=== PATIENT | female | born 2000 | race Caucasian/White ===

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

== ENCOUNTER 2021-01-08 01:50 | Emergency (ER) | payer MEDICAID, SELFPAY ==
[2021-01-08 01:59] VITALS: BP 121/69; PULSE 98; RESP 18; TEMP 36.9; O2SAT 99; BMI 19.4
[2021-01-08 02:26] LABS: Appearance Urine HAZY; Color Urine DARK YELLOW; Glucose Urine UA NEG (NEG); Leukocyte Esterase Urine NEG (NEG); Nitrite Urine NEG (NEG); PH 5.5 (5.0-8.0); Specific Gravity - Urine >= 1.030 (1.005-1.025); UACC Culture Trigger NO; Urine Blood NEG (NEG); Urine Ketones 40 MG/DL (NEG); Urine Protein TRACE MG/DL (NEG-TRACE)
[2021-01-08 02:27] LABS: UPreg QC Valid YES; Urine Pregnancy NEGATIVE (NEGATIVE)
--- NOTE | 2021-01-08 05:55 | ED_ITS ---
HPI - Female Genitourinary General Chief complaint: Urogenital-Female Stated complaint: ?KIDNEY STONE/UTI Time Seen by Provider: 01/08/21 05:54 Source: patient Mode of arrival: ambulatory History of Present Illness HPI Narrative: Bilateral lower back pain radiating into the bilateral groin area for 1 and half weeks associated with nausea, a few episodes of diarrhea and feels that this is a UTI. She denies any vaginal discharge and states that her menstrual period is late. Related Data Previous Rx's Medication Instructions Recorded ibuprofen 600 mg PO Q8H PRN #30 tab 07/15/20 Allergies Allergy/AdvReac Type Severity Reaction Status Date / Time No Known Allergies Allergy Verified 01/08/21 01:58 [No Known Allergies*] Review of Systems Review of Systems: Pertinent positives and negatives as stated in HPI 10 point review of systems is otherwise negative. PMFSH Past Medical History Source: nursing notes reviewed Medical History Anxiety Depression No known health problems Surgical History Hx of tonsillectomy Social History Social History Alcohol intake: current Alcohol intake frequency: holidays/special occasions only Smoking Status: Current some day smoker Substance Use Type: Marijuana Advance Directives: No Physical Exam Vital Signs: Vital Signs: Last Vital Signs Temp 98.5 F 01/08/21 01:59 Pulse 98 01/08/21 01:59 Resp 18 01/08/21 01:59 BP 121/69 01/08/21 01:59 Pulse Ox 99 01/08/21 01:59 Body Mass Index 19.4 VITAL SIGNS: Reviewed. GENERAL: Well developed, well nourished, in no acute distress. HEAD: Normocephalic/atraumatic, NOSE: Nares patent bilateral OROPHARYNX: no oral lesions noted, posterior pharynx clear NECK: Supple, no adenopathy LUNGS: Normal breath sounds. SpO2<99> CARDIOVASCULAR: Regular rate and rhythm without noted murmurs ABDOMEN: Soft, mild suprapubic tenderness, non-distended with bowel sounds, bilateral CVA tenderness. NEUROLOGIC: Alert and oriented x 4. Course Course Course Narrative: This is a 20-year-old female who presents with initially thought to be possible renal colic versus pyelonephritis, UTI but on review of urinalysis and urine there are no acute findings other than evidence of likely mild dehydration. Patient is afebrile, non tachycardic, no evidence of tachypnea but continues to insist that she knows that this is a UTI. She was offered a CT scan for better evaluation however declines that at this time. Patient was discharged in stable condition with good follow-up as she states she will return to her primary care provider today. MDM - Female Genitourinary Lab Data Labs: Lab Results 01/08/21 01/08/21 Range/Units 02:16 02:16 Urine Color DARK YELLOW Urine Appearance HAZY Urine pH 5.5 (5.0-8.0) Ur Specific [place] >= 1.030 H (1.005-1.025) Urine Protein TRACE (NEG-TRACE) MG/DL Urine Glucose (UA) NEG (NEG) MG/DL Urine Ketones 40 (NEG) MG/DL Urine Blood NEG (NEG) Urine Nitrite NEG (NEG) Ur Leukocyte Esterase NEG (NEG) Urine Test NEGATIVE (NEGATIVE) Discharge Plan Discharge Clinical Impression: Back pain Qualifiers: Back pain location: low back pain Chronicity: acute Back pain laterality: bilateral Sciatica presence: without sciatica Qualified Code(s): M54.5 - Low back pain Patient Disposition: Home, Self-Care Instructions: Acute Low Back Pain (ED) Additional Instructions: 1. Please utilize Tylenol 1000 mg, orally, every 6 hours as needed for pain control. Do not exceed 4000 mg within 24 hours. 2. Ibuprofen 400 mg, orally with milk or food, every 6 hours as needed for pain control. Do not hesitate to return to the emergency department should you experience any acute worsening of your symptoms to include fevers, chills , nausea, vomiting. Prescriptions: No Action ibuprofen 600 mg tablet 600 mg PO Q8H PRN (Reason: pain) Qty: 30 RF: 0 Interventions: ED Discharge Assessment Last Done: 01/08/21 06:59 Discharge Date/Time: 01/08/21 06:15
--- NOTE | 2021-01-08 06:47 | PC.NURSE ---
PT WALKED OUT OF ER AT 05:30.
== END 2021-01-08 06:15 | disposition home or self-care (01) ==
PROVIDERS: Emergency Provider Student in an Organized Health Care Education/Training Program
DX: M54.5 Low back pain (principal); R19.7 Diarrhea, unspecified; F12.90 Cannabis use, unspecified, uncomplicated; F17.200 Nicotine dependence, unspecified, uncomplicated; Z71.6 Tobacco abuse counseling
CPT/HCPCS: 81003; 81025; 96372; 99283; 99284

== ENCOUNTER 2021-12-03 12:53 | Inpatient (IN) | payer MEDICAID, OTHER, SELFPAY ==
--- NOTE | ~2021-12-03 | XR_ITS ---
EXAMINATION: XR HAND WRIST RIGHT CLINICAL INFORMATION: Bruising, soreness after punching wall COMPARISON: None TECHNIQUE: Right hand and wrist, 3 views XR/XR hand wrist RT FINDINGS AND IMPRESSION: Alignment is normal in the hand or wrist. Minimal soft tissue swelling dorsal to the fifth metacarpal head. Otherwise, bones, joints and soft tissues have a normal appearance. No evidence of fracture or subluxation.
[2021-12-03 12:59] VITALS: BP 118/80; PULSE 72
--- NOTE | 2021-12-03 13:05 | ED_ITS ---
HPI - Psych General Chief Complaint: Psychiatric Symptoms Stated Complaint: SEC 12,SI W/PLAN,SEEN IN COMM,BED EARCH IN PROG Time Seen by Provider: 12/03/21 13:02 Source: patient Mode of arrival: EMS Limitations: no limitations History of Present Illness MD complaint: suicidal ideation and feels depressed Onset (ago): day(s) Duration: getting worse History of same: Yes Relieving factors: none Exacerbating factors: none Context: significant life stressor Associated psychiatric symptoms: depression and suicidal ideation Associated symptoms: denies other symptoms Treatments prior to arrival: placed on mental health hold If self harm: admits thoughts of self harm Related Data Previous Rx's Medication Instructions Recorded ibuprofen 600 mg tablet 600 mg PO Q8H PRN #30 tab 07/15/20 Allergies Allergy/AdvReac Type Severity Reaction Status Date / Time No Known Allergies Allergy Verified 01/08/21 01:58 [No Known Allergies*] Review of Systems Review of Systems: Constitutional : No Fever, No Chills ENT/Mouth : No Ear Pain, No Nasal Congestion, No sore throat Eyes: No Eye Pain, No Swelling, No Redness Cardiovascular : No Chest Pain, No SOB Respiratory : No Cough, No Sputum, No Dyspnea Gastrointestinal : No Nausea, No Vomiting, No Diarrhea, No Hematochezia, No Melena Genitourinary : No Dysuria, No Urinary Frequency, No Hematuria Musculoskeletal : No Myalgias Skin : No Skin Lesions, No rash Neuro : No Weakness, No Numbness, No Paresthesias, No Dizziness, No Headache Psych : positive Anxiety, positive Depression, positive SI no HI Heme/Lymph: No Lymphadenopathy Endocrine : No Polyuria, No Polydipsia All other systems reviewed and are negative PENDING SALE TO [facility] Past Medical History Attestation statement: The following information was validated with the patient. Medical History Anxiety Depression No known health problems Surgical History Hx of tonsillectomy Social History Social History Alcohol intake: never Smoked in Last 30 Days: No Substance Use Type: Marijuana Advance Directives: No Advance Directives Information Provided: No Physical Exam Vital Signs: Vital Signs: Last Vital Signs Temp 98.4 F 12/03/21 13:49 Pulse 72 12/03/21 13:49 Resp 16 12/03/21 13:49 BP 122/71 12/03/21 13:49 Pulse Ox 97 12/03/21 13:49 BMI result Body Mass Index 23.4 Appearance: Alert. Oriented X3. No acute distress. Flat affect Eyes: Pupils equal, round and reactive to light. ENT: Pharynx normal. Neck: Normal inspection. Neck supple. CVS: Normal heart rate and rhythm. Pulses normal. Respiratory: No respiratory distress. Breath sounds normal. Abdomen: Soft and non-tender. Skin: Skin warm and dry. Normal skin color. Normal skin turgor. Extremities: No lower extremity edema. No calf ttp Neuro: Oriented X 3. No motor deficit. No sensory deficit. Cn2-12 intact Course Course Course Narrative: Physician observation started at 317pm. Patient placed in physician observation because the patient needed more time for crisis assessment given SI At the time observation was started the patient's vitals were stable, patient is alert and oriented. Neuro: nonfocal, CV RRR, Lungs clear MDM - Psych MDM Narrative Medical decision making narrative: 21 yo female hx of anxiety and depression 2 months post - c/o depression and SI - bed search from community will obtain labs and medically clear Discharge Plan Discharge Clinical Impression: Depression Qualifiers: Depression Type: unspecified Qualified Code(s): F32.A - Depression, unspecified Patient Disposition: Still a Patient Prescriptions: No Action ibuprofen 600 mg tablet 600 mg PO Q8H PRN (Reason: pain) Qty: 30 0RF
[2021-12-03] MEDS: LORazepam 1 MG TABLET PO ×3 (13:44→23:32)
[2021-12-03 13:49] VITALS: BP 122/71; PULSE 72; RESP 16; TEMP 36.9; O2SAT 97; BMI 23.4
[2021-12-03 15:43] VITALS: BP 105/60; PULSE 69; RESP 16; O2SAT 99
[2021-12-03 15:57] LABS: MANUAL DIFF FLAG NO
[2021-12-03 16:00] LABS: Basophils Percent Auto 0.3 % (0-2); Eosinophils Percent Auto 0.3 % (0-4); Hematocrit 36.3 % (37.0-47.0); Imm Gran Abs Auto 0.01 X10*3/uL (0.00-0.03); Imm Gran Pct Auto 0.1 % (0.0-0.4); Lymphocytes Absolute Auto 1.6 X10*3/uL (1.2-4.9); Lymphocytes Percent Auto 23.8 % (20-40); Mean Corpuscular HGB Conc 33.1 g/dl (31.0-35.0); Mean Corpuscular Hemoglobin 28.4 pg (27.0-33.0); Mean Corpuscular Volume 85.8 fL (80.0-98.0); Mean Platelet Volume 11.9 fL (9.4-12.3); Monocytes Absolute Auto 0.6 X10*3/uL (0.1-1.2); Monocytes Percent Auto 8.2 % (2-11); Neutrophils Absolute Auto 4.5 x10*3/uL (2.0-8.3); Neutrophils Percent Auto 67.3 % (45-73); Platelet Count 226 X10*3/uL (160-400); Red Blood Count 4.23 X10*6/uL (4.20-5.50); Red Cell Distribution Width 12.9 % (11.0-16.0); White Blood Count 6.7 X10*3/uL (4.8-10.8)
[2021-12-03 16:14] LABS: COVID-19 Test Negative (Negative); IDNOW Serial# 55D5AD1C
[2021-12-03 16:14] LABS: UPreg QC Valid YES; Urine Pregnancy NEGATIVE (NEGATIVE)
[2021-12-03 16:25] LABS: Amphetamine Screen Urine Not Detected (Not Detect); Barbiturates, Urine Not Detected (Not Detect); Benzodiazepines Screen Urine Not Detected (Not Detect); Cannabinoid Screen Urine POSITIVE (Not Detect); Cocaine Screen Urine Not Detected (Not Detect); Fentanyl, urine Not Detected (Not Detect); Opiate Screen Urine Not Detected (Not Detect); Phencyclidine Screen Urine Not Detected (Not Detect)
[2021-12-03 16:27] LABS: Alanine Aminotransferase 9 U/L (0-31); Albumin Level 4.4 g/dL (3.5-5.0); Alkaline Phosphatase 79 U/L (39-117); Anion Gap 12 (12-20); Aspartate Amino Transferase 19 U/L (5-31); Bilirubin Direct 0.2 mg/dL (0.0-0.5); Bilirubin Total 0.6 mg/dL (0.0-1.0); Blood Urea Nitrogen 10 mg/dL (9-16); Calcium 9.9 mg/dL (8.4-10.2); Carbon Dioxide 24 mmol/L (22-29); Chloride 109 mmol/L (96-108); Creatinine Clr Calc Pharmacy 91.5; Estimated Glomerular Filt Rate > 60; Glucose Random 85 mg/dL (60-115); Potassium 4.4 mmol/L (3.3-5.1); Sodium 141 mmol/L (135-145); Total Protein 7.1 g/dL (6.5-8.0)
[2021-12-03] MEDS: diphenhydrAMINE HCL 25 MG TABLET 50 MG PO (23:32)
[2021-12-03] MEDS: OLANZapine 5 MG TABLET PO (23:32)
--- NOTE | 2021-12-03 23:48 | PC.NURSE ---
Patient was found wrapping blanket around her neck, intervened/1:1 ordered for safety, Olanzapine 5 mg PO, Ativan 1 mg PO, and Benadryl 50 mg po, administered/vomited immediately after taking her medication, patient is constantly expressing hopelessness/suicidal ideation, appears overwhelmed being new mother, will continue to monitor.
[2021-12-03 23:52] VITALS: BP 98/60; PULSE 75; RESP 20; O2SAT 97
[2021-12-03 23:54] LABS: Glucose, Whole Blood 84 mg/dL (60-115)
[2021-12-04 00:01] LABS: Appearance Urine TURBID; Color Urine YELLOW; Glucose Urine UA NEG (NEG); Leukocyte Esterase Urine NEG (NEG); Nitrite Urine NEG (NEG); Specific Gravity - Urine >= 1.030 (1.005-1.025); Urine Blood NEG (NEG); Urine Ketones 15 MG/DL (NEG); Urine Protein NEG (NEG-TRACE)
[2021-12-04] MEDS: Ondansetron ODT 4 MG TAB.RAPDIS TRANSLINGU (00:02)
[2021-12-04] MEDS: OLANZapine ODT 10 MG TAB.RAPDIS TRANSLINGU ×2 (00:14→18:40)
--- NOTE | 2021-12-04 05:46 | PC.NURSE ---
Patient slept through the night, 1:1 for patient safety, no distress observed/reported at this time, behavior unpredictable/hopelessness/ suicidal/[id number], mood depressed related to , affect labile, VSS, appetite poor, VSS, will continue to monitor.
--- NOTE | 2021-12-04 05:51 | PC.NURSE ---
Patient disposition per [facility] is section 12 inpatient bed search, no update so far on bed search.
--- NOTE | 2021-12-04 06:07 | PC.NURSE ---
Per MHT report, patient verbalized on two occasion to elope from the ED Pod.
--- NOTE | 2021-12-04 09:17 | PC.NURSE ---
pt's mother called for update and states she will be in to visit sometime this afternoon. pt sleeping, 1:1 staff monitoring, no issues noted or reported, pt awaiting inpatient bed assignment. will continue to monitor.
--- NOTE | 2021-12-04 10:20 | PC.NURSE ---
Juana from [facility] called with authorization number ([id number] for 3days). The Clinician is Bryanna. No ETA at this time. pt sleeping, 1:1 staff remains will continue to monitor.
--- NOTE | 2021-12-04 11:13 | PC.NURSE ---
pt seen by Kamille from Care Team and signed Voluntary Admission papers. Pt to be admitted to M3 pending bed availability.
[2021-12-04] MEDS: LORazepam 1 MG TABLET PO (11:57)
[2021-12-04] MEDS: OLANZapine 10 MG VIAL 5 MG IM (13:00)
[2021-12-04 14:13] VITALS: BP 101/58; PULSE 97; RESP 18; O2SAT 96
--- NOTE | 2021-12-04 14:30 | PC.NURSE ---
pt woke up and immediately began pacing around the unit, yelling, swearing, punching the daniels, and kicking the entrance doors. security staff notified and came to unit. pt had episodes of yelling, swearing, pulling out her hair, made one attempt to put blanket around her neck. pt calmed down briefly then started again with the same behaviors. Karen, Behavior Flight Coordinator at pt's bedside. she continued on and off with aggressive and violent behaviors, also threatening staff. pt offered and accepted po med. Shortly after she began throwing things such as food and bed linen, yelling, swearing, punching and banging her head on the daniels, pulling her hair and continued with threats towards staff including security staff. Pt given IM medication and placed in 4 points soft restraints. VSS monitored, restraints monitored and was discontinued at 1350. pt sleeping. 1:1 staff remains. will continue to monitor
--- NOTE | 2021-12-04 17:18 | PC.NURSE ---
pt transferred to M3 by Yolande, Behavioral Tech and security staff. pt calm and cooperative.
[2021-12-04] MEDS: LORazepam 1 MG TABLET 2 MG PO (18:41)
--- NOTE | 2021-12-04 19:39 | PC.NURSE ---
Latonia is a 21 year old single female admitted to M3 on CV ( now 3 day notice) from [facility] for post depression, suicidal ideation, and ptsd. Latonia has experienced poor appetite, poor sleep, racing thoughts, depressed mood and anxiety since the of her son 2 months ago. Latonia was intermittently agitated and vacillated between cooperative and uncooperative with admission process. She verbalized ideation to harm both self and others and was vague about intent. She states, I don't want to be here. I want to kill myself. I want to . I've been here all day and no one has helped me yet. and I could just slit all your throats right now. She confirms racing thoughts and anxiety, denies perceptual disturbance. Latonia engaged in self harming behaviors intermittently this evening: light head banging, hitting self, kicking wall, requiring verbal and physical redirection. Therefore , she was placed on 1:1 for safety.. Latonia initially refused prn medications but with prompting took ativan 2mg and zyprexa 10mg po with good effect. She reports the only substance she uses in marijuana. She denies physical complaint.
[2021-12-04 20:10] VITALS: PULSE 69; TEMP 36.6; O2SAT 97
[2021-12-05 07:00] VITALS: BMI 22.0
[2021-12-05 10:00] VITALS: BP 117/65; PULSE 101; RESP 16; TEMP 36.2; O2SAT 97
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
[2021-12-05 18:00] VITALS: BP 122/70; PULSE 103; RESP 18; TEMP 36.7; O2SAT 95
[2021-12-05] MEDS: hydrOXYzine HCL 25 MG TABLET PO (21:46)
[2021-12-05] MEDS: traZODone HCL 50 MG TABLET PO (21:46)
[2021-12-05] MEDS: Acetaminophen 325 MG TABLET 650 MG PO (23:23)
[2021-12-06 11:24] VITALS: BP 113/62; PULSE 88; RESP 16; TEMP 36.7; O2SAT 92
[2021-12-06] MEDS: LORazepam 1 MG TABLET 2 MG PO (11:27)
--- NOTE | 2021-12-06 15:09 | HO.PSYCHPN ---
Subjective Subjective Date of Service: 12/06/21 Reason For Visit: Agitation Subjective Notes: 3 Day Interim History: Pt reports she felt dizzy earlier today when standing up, mild ortho hotn when standing (SBP drop 10m). Pt thinks is related to dose of ativan that she got earlier. She describes episodes of mood dysregulation when feeling frustrated, thinks Borderline Personality Disorder is accurate when describing white s/s. Pt reports she is open to start antidepressant, reports mother has done well on lexapro. She denies SI/HI. No VH/AH. Pt reports good sleep last night. No behavioral concerns. Medication Compliance: Yes Side effects from medications: No Review of Systems Review of Systems Constitutional : No Fever, No Chills ENT/Mouth : No Ear Pain, No Nasal Congestion, No sore throat Eyes: No Eye Pain, No Swelling, No Redness Cardiovascular : No Chest Pain, No SOB Respiratory : No Cough, No Sputum, No Dyspnea Gastrointestinal : No Nausea, No Vomiting, No Diarrhea, No Hematochezia, No Melena Genitourinary : No Dysuria, No Urinary Frequency, No Hematuria Musculoskeletal : No Myalgias Skin : No Skin Lesions, No rash Neuro : No Weakness, No Numbness, No Paresthesias, No Dizziness, No Headache Psych : positive Anxiety, positive Depression, positive SI no HI Heme/Lymph: No Lymphadenopathy Endocrine : No Polyuria, No Polydipsia All other systems reviewed and are negative Mental Status Exam Mental Status Exam Narrative: dressed in hospital attire. no PMA/PMR. cooperative with interview. speech nml in rate, amount, loudness, tone, latency. thoughts linear and logical. affect brighter, non labile. mood less depressed . No SI, no intent or plan. denies HI/AVH. Insight/judgment is fair. Diagnostics Vital Signs (24Hr): Vital Signs - 24 hr 12/05/21 18:00 12/06/21 11:24 Temperature 98.0 F 98.0 F Pulse Rate 103 H 88 Respiratory Rate 18 16 Blood Pressure 122/70 113/62 Pulse Oximetry 95 92 BMI result Body Mass Index 22.0 Labs Results: 12/03/21 15:53 12/03/21 15:53 Medications Medications Current Medications Acetaminophen (Acetaminophen 325 Mg Tablet) 650 mg PO Q6H PRN PRN Reason: Headache/Pain Mild Scale (1-3) Last Admin: 12/05/21 23:23 Dose: 650 mg Documented by: Al Hydroxide/Mg Hydroxide (Magnesium Hydrox/Alum Hydrox 30 Ml Oral.Susp) 30 ml PO Q6H PRN PRN Reason: Heartburn/Nausea Haloperidol (Haloperidol 5 Mg Tablet) 5 mg PO Q4H PRN PRN Reason: agitation Hydroxyzine HCl (Hydroxyzine Hcl 25 Mg Tablet) 25 mg PO BEDTIME PRN PRN Reason: Anxiety Last Admin: 12/05/21 21:46 Dose: 25 mg Documented by: Lorazepam (Lorazepam 1 Mg Tablet) 1 mg PO Q4H PRN PRN Reason: agitation Magnesium Hydroxide (Milk Of Magnesia 30 Ml Oral.Susp) 30 ml PO DAILY PRN PRN Reason: Constipation Nicotine Polacrilex (Nicotine Polacrilex 2 Mg Gum) 4 mg BUCCAL Q2H PRN PRN Reason: Nicotine Cravings Trazodone HCl (Trazodone Hcl 50 Mg Tablet) 50 mg PO BEDTIME PRN PRN Reason: Insomnia Last Admin: 12/05/21 21:46 Dose: 50 mg Documented by: Allergies Allergies Allergy/AdvReac Type Severity Reaction Status Date / Time No Known Allergies Allergy Verified 01/08/21 01:58 [No Known Allergies*] Assessment & Plan Assessment & Plan (1) MDD (major depressive disorder), recurrent episode, moderate: Status: Acute Code(s): F33.1 - Major depressive disorder, recurrent, moderate Plan PLAN: 1. start lexapro 10mg po daily 2. signed 3 day notice, up on 12/09/21 3. obtain collateral information 4. aftercare planning. I spent minutes with the patient and/or on the patient floor today, greater than?50% of which was spent counseling/coordinating care. Reason for contiued inpatient stay Substantial Risk for: harm to self
[2021-12-06] MEDS: Escitalopram Oxalate 10 MG TABLET PO (16:13)
[2021-12-06] MEDS: hydrOXYzine HCL 25 MG TABLET PO (18:54)
[2021-12-06 20:36] VITALS: PULSE 84; TEMP 36.7; O2SAT 97
[2021-12-07 08:00] VITALS: BP 109/71; PULSE 55; RESP 16; TEMP 36.8; O2SAT 98
--- NOTE | 2021-12-07 09:46 | HO.PSYCHPN ---
Subjective Subjective Date of Service: 12/07/21 Reason For Visit: Agitation Subjective Notes: Conditional Voluntary and 3 Day Medical Problems Affecting Mental Status: No Interim History: Patient was seen and discussed in rounds. Records and plans were reviewed. No episodes of dizziness reported today as of yet yesterday she had an episode with mild orthostasis. She continues to have depression and anxiety. Eating and sleeping adequately. She is isolative and withdrawn but pleasant and appears to have made some improvements. Eating and sleeping well. No complaints or side effects. No changes were made today Medication Compliance: Yes Review of Systems Review of Systems Constitutional : No Fever, No Chills ENT/Mouth : No Ear Pain, No Nasal Congestion, No sore throat Eyes: No Eye Pain, No Swelling, No Redness Cardiovascular : No Chest Pain, No SOB Respiratory : No Cough, No Sputum, No Dyspnea Gastrointestinal : No Nausea, No Vomiting, No Diarrhea, No Hematochezia, No Melena Genitourinary : No Dysuria, No Urinary Frequency, No Hematuria Musculoskeletal : No Myalgias Skin : No Skin Lesions, No rash Neuro : No Weakness, No Numbness, No Paresthesias, No Dizziness, No Headache Psych : positive Anxiety, positive Depression, positive SI no HI Heme/Lymph: No Lymphadenopathy Endocrine : No Polyuria, No Polydipsia All other systems reviewed and are negative Yes all other systems are reviewed and are negative Diagnostics Vital Signs (24Hr): Vital Signs - 24 hr 12/06/21 11:24 12/06/21 20:36 Temperature 98.0 F 98.0 F Pulse Rate 88 84 Respiratory Rate 16 Blood Pressure 113/62 Pulse Oximetry 92 97 BMI result Body Mass Index 22.0 Labs Results: 12/03/21 15:53 12/03/21 15:53 Medications Medications Current Medications Acetaminophen (Acetaminophen 325 Mg Tablet) 650 mg PO Q6H PRN PRN Reason: Headache/Pain Mild Scale (1-3) Last Admin: 12/05/21 23:23 Dose: 650 mg Documented by: Al Hydroxide/Mg Hydroxide (Magnesium Hydrox/Alum Hydrox 30 Ml Oral.Susp) 30 ml PO Q6H PRN PRN Reason: Heartburn/Nausea Escitalopram Oxalate (Escitalopram Oxalate 10 Mg Tablet) 10 mg PO DAILY FESTUS Last Admin: 12/07/21 09:40 Dose: Not Given Documented by: Haloperidol (Haloperidol 5 Mg Tablet) 5 mg PO Q4H PRN PRN Reason: agitation Hydroxyzine HCl (Hydroxyzine Hcl 25 Mg Tablet) 25 mg PO Q6H PRN PRN Reason: Anxiety Last Admin: 12/06/21 18:54 Dose: 25 mg Documented by: Magnesium Hydroxide (Milk Of Magnesia 30 Ml Oral.Susp) 30 ml PO DAILY PRN PRN Reason: Constipation Nicotine Polacrilex (Nicotine Polacrilex 2 Mg Gum) 4 mg BUCCAL Q2H PRN PRN Reason: Nicotine Cravings Trazodone HCl (Trazodone Hcl 50 Mg Tablet) 50 mg PO BEDTIME PRN PRN Reason: Insomnia Last Admin: 12/05/21 21:46 Dose: 50 mg Documented by: Allergies Allergies Allergy/AdvReac Type Severity Reaction Status Date / Time No Known Allergies Allergy Verified 01/08/21 01:58 [No Known Allergies*] Assessment & Plan Assessment & Plan (1) MDD (major depressive disorder), recurrent episode, moderate: Status: Acute Code(s): F33.1 - Major depressive disorder, recurrent, moderate Plan PLAN: 1. start lexapro 10mg po daily 2. signed 3 day notice, up on 12/09/21 3. obtain collateral information 4. aftercare planning. 12/07/2021: Continue current regimen and plans. Her mother is going to bring her Celexa and and we will put it in as a replacement for the Lexapro which was started because of Celexa not being in the formulary I spent minutes with the patient and/or on the patient floor today, greater than?50% of which was spent counseling/coordinating care. Reason for contiued inpatient stay Substantial Risk for: other
[2021-12-07 09:52] VITALS: BP 112/78; PULSE 76; RESP 16; TEMP 36.8; O2SAT 98
[2021-12-07] MEDS: Acetaminophen 325 MG TABLET 650 MG PO (14:02)
[2021-12-07 20:45] VITALS: BP 105/69; PULSE 110; O2SAT 99
[2021-12-07] MEDS: Benztropine Mesylate 2 MG/2 ML VIAL 1 MG IM (20:45)
[2021-12-07] MEDS: Haloperidol Lactate 5 MG/ML VIAL IM (20:45)
[2021-12-07] MEDS: LORazepam 2 MG/ML VIAL IM (20:45)
[2021-12-07 22:55] VITALS: BP 110/61; PULSE 86; RESP 12; O2SAT 99
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
[2021-12-08 01:55] VITALS: BP 106/67; PULSE 88; O2SAT 99
--- NOTE | 2021-12-08 03:17 | PC.NURSE ---
restraint event on 12/07/21-see mental status assessment for additional detail. placed in chair restrain at 1999 and removed at 2044. given medication restraint of haldol 5 mg IM, cogentin 1 mg IM and ativan 2 mg IM. was assessed by hospitalist. see event note.
--- NOTE | 2021-12-08 09:14 | HO.PSYCHPN ---
Subjective Subjective Date of Service: 12/08/21 Reason For Visit: Agitation Subjective Notes: Conditional Voluntary and 3 Day Medical Problems Affecting Mental Status: No Interim History: Patient was seen and discussed in rounds today. She is active but had a very difficult night last night becoming extremely agitated over some issues about her medications. Eventually she had to be restrained in her chair and IM medications at to be administered which were quite helpful. Very quickly she was able to come out of the restrained and went to sleep. Last night she also had complained of having punched a wall prior to admission with bruising and swelling. An x-ray was ordered with no fractures. She states that she is doing better and does not know why she became so agitated last night. No changes were made today. She had some questions about her Lexapro which we discussed Medication Compliance: Yes Side effects from medications: No Review of Systems Review of Systems Constitutional : No Fever, No Chills ENT/Mouth : No Ear Pain, No Nasal Congestion, No sore throat Eyes: No Eye Pain, No Swelling, No Redness Cardiovascular : No Chest Pain, No SOB Respiratory : No Cough, No Sputum, No Dyspnea Gastrointestinal : No Nausea, No Vomiting, No Diarrhea, No Hematochezia, No Melena Genitourinary : No Dysuria, No Urinary Frequency, No Hematuria Musculoskeletal : No Myalgias. Right hand bruising Skin : No Skin Lesions, No rash Neuro : No Weakness, No Numbness, No Paresthesias, No Dizziness, No Headache Psych : positive Anxiety, positive Depression, positive SI no HI Heme/Lymph: No Lymphadenopathy Endocrine : No Polyuria, No Polydipsia All other systems reviewed and are negative Yes all other systems are reviewed and are negative Diagnostics Vital Signs (24Hr): Vital Signs - 24 hr 12/07/21 09:52 12/07/21 20:45 12/07/21 22:55 Temperature 98.2 F Pulse Rate 76 110 H 86 Respiratory Rate 16 12 Blood Pressure 112/78 105/69 110/61 Pulse Oximetry 98 99 99 12/08/21 01:55 Temperature Pulse Rate 88 Respiratory Rate Blood Pressure 106/67 Pulse Oximetry 99 BMI result Body Mass Index 22.0 Labs Results: 12/03/21 15:53 12/03/21 15:53 Imaging Radiology Impressions: ITS Impressions Hand/Wrist X-Ray 12/07/21 14:40 FINDINGS AND IMPRESSION: Alignment is normal in the hand or wrist. Minimal soft tissue swelling dorsal to the fifth metacarpal head. Otherwise, bones, joints and soft tissues have a normal appearance. No evidence of fracture or subluxation. Medications Medications Current Medications Acetaminophen (Acetaminophen 325 Mg Tablet) 650 mg PO Q6H PRN PRN Reason: Headache/Pain Mild Scale (1-3) Last Admin: 12/07/21 14:02 Dose: 650 mg Documented by: Al Hydroxide/Mg Hydroxide (Magnesium Hydrox/Alum Hydrox 30 Ml Oral.Susp) 30 ml PO Q6H PRN PRN Reason: Heartburn/Nausea Escitalopram Oxalate (Escitalopram Oxalate 10 Mg Tablet) 10 mg PO DAILY FESTUS Last Admin: 12/07/21 09:40 Dose: Not Given Documented by: Haloperidol (Haloperidol 5 Mg Tablet) 5 mg PO Q4H PRN PRN Reason: agitation Hydroxyzine HCl (Hydroxyzine Hcl 25 Mg Tablet) 25 mg PO Q6H PRN PRN Reason: Anxiety Last Admin: 12/06/21 18:54 Dose: 25 mg Documented by: Magnesium Hydroxide (Milk Of Magnesia 30 Ml Oral.Susp) 30 ml PO DAILY PRN PRN Reason: Constipation Nicotine Polacrilex (Nicotine Polacrilex 2 Mg Gum) 4 mg BUCCAL Q2H PRN PRN Reason: Nicotine Cravings Trazodone HCl (Trazodone Hcl 50 Mg Tablet) 50 mg PO BEDTIME PRN PRN Reason: Insomnia Last Admin: 12/05/21 21:46 Dose: 50 mg Documented by: Allergies Allergies Allergy/AdvReac Type Severity Reaction Status Date / Time No Known Allergies Allergy Verified 01/08/21 01:58 [No Known Allergies*] Assessment & Plan Assessment & Plan (1) MDD (major depressive disorder), recurrent episode, moderate: Status: Acute Code(s): F33.1 - Major depressive disorder, recurrent, moderate Plan PLAN: 1. start lexapro 10mg po daily 2. signed 3 day notice, up on 12/09/21 3. obtain collateral information 4. aftercare planning. 12/07/2021: Continue current regimen and plans. Her mother is going to bring her Celexa and and we will put it in as a replacement for the Lexapro which was started because of Celexa not being in the formulary 12/08: Continue current regimen and plans I spent minutes with the patient and/or on the patient floor today, greater than?50% of which was spent counseling/coordinating care. Patient educated on: medication risk/benefits Reason for contiued inpatient stay Substantial Risk for: other
[2021-12-08 09:30] VITALS: BP 109/63; PULSE 83; RESP 16; TEMP 36.6; O2SAT 96
[2021-12-08] MEDS: Escitalopram Oxalate 10 MG TABLET PO (09:34)
[2021-12-08 18:00] VITALS: BP 114/77; PULSE 88; RESP 16; TEMP 36.6; O2SAT 98
[2021-12-08] MEDS: traZODone HCL 50 MG TABLET PO (23:02)
[2021-12-09] MEDS: Escitalopram Oxalate 10 MG TABLET PO (10:16)
[2021-12-09 10:29] VITALS: BP 97/69; PULSE 84; RESP 16; TEMP 36.4; O2SAT 96
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
--- NOTE | 2021-12-09 12:34 | PC.NURSE ---
Patient is pleasant and cooperative upon approach. Patient reports an understanding of discharge instructions and is in agreement. Patient reports feeling ready for discharge. Patient described looking forward to seeing her baby stating I have missed him so much . Patient denies SI/HI/AH/VH. Patient reported feeling safe for discharge. At this time patient denies physical complaints.
== END 2021-12-09 12:51 | disposition home or self-care (01) | DRG 751 ==
LOC: HO.ED 20:19 → HO.PADLT16 12-04 16:56
PROVIDERS: Admitting Provider Psychiatry & Neurology Psychiatry; Emergency Provider Emergency Medicine; Visit Provider Social Worker
DX: F33.1 Major depressive disorder, recurrent, moderate (principal); R45.851 Suicidal ideations; Z20.822 Contact with and (suspected) exposure to COVID-19; Z79.899 Other long term (current) drug therapy
CPT/HCPCS: 73110; 73130; 80048; 80076; 80307; 81003; 81025; 82947; 85025; 87635; 96372; 99285; J0515; J2060; Q0163

== ENCOUNTER 2022-07-02 20:01 | Emergency (ER) | payer MEDICAID, SELFPAY | END 2022-07-02 21:29 | disposition left against medical advice (07) | LOC: HO.ED 21:12 | PROVIDERS: Emergency Provider Emergency Medicine | DX: Z20.2 Contact with and (suspected) exposure to infections with a predominantly sexual mode of transmission (principal) ==

== ENCOUNTER 2022-10-28 14:44 | Emergency (ER) | payer MEDICAID, SELFPAY ==
--- NOTE | ~2022-10-28 | CT_ITS ---
EXAMINATION: CT ABDOMEN AND PELVIS WITHOUT CONTRAST CLINICAL INFORMATION: Right-sided flank pain COMPARISON: None TECHNIQUE: Multidetector volumetric imaging was performed from the superior aspect of the liver through the pubic symphysis. Sagittal and coronal reformatted images were obtained on the technologist's workstation. This CT examination was performed using dose optimization techniques as appropriate, variously including the following: *Automated exposure control *Adjustment of mA and/or kV according to patient size (this includes techniques or standardized protocols for targeted exams where dose is matched to indication/reason for exam; i.e. extremities or head) *Use of iterative reconstruction technique DLP: 257 mGy-cm FINDINGS: LUNG BASES: The visualized lung bases are unremarkable. LIVER, GALLBLADDER, AND BILIARY TREE: The liver is normal in size, shape, and attenuation. No focal hepatic lesion or biliary ductal dilatation is present. The gallbladder is unremarkable with no evidence of radiopaque gallstones, gallbladder wall thickening, or obvious pericholecystic inflammatory changes. PANCREAS: Unremarkable. SPLEEN: Unremarkable. ADRENAL GLANDS: Unremarkable. KIDNEYS AND URETERS: The kidneys are normal in size, shape, and attenuation. No hydronephrosis, hydroureter, or calculi seen. No perinephric stranding. BLADDER: Unremarkable. GASTROINTESTINAL TRACT: The small and large bowel are unremarkable. The appendix is unremarkable. ABDOMINAL WALL: No significant hernia is appreciated. LYMPH NODES: Normal. VASCULAR: Unremarkable. PELVIC VISCERA: Unremarkable. OSSEOUS STRUCTURES: Unremarkable. CT/CT abdomen pelvis wo IV con IMPRESSION: No significant abnormality. Fleischner guidelines were followed.
[2022-10-28 14:56] VITALS: BP 100/65; BP 121/65; PULSE 78; PULSE 80; RESP 16; TEMP 36.9; O2SAT 100; O2SAT 99; BMI 18.3
[2022-10-28 15:12] LABS: Hematocrit 35.5 % (37.0-47.0); Hemoglobin 11.8 g/dl (12.0-16.0); Mean Corpuscular HGB Conc 33.2 g/dl (31.0-35.0); Mean Corpuscular Hemoglobin 29.1 pg (27.0-33.0); Mean Corpuscular Volume 87.4 fL (80.0-98.0); Mean Platelet Volume 12.8 fL (9.4-12.3); Platelet Count 180 X10*3/uL (160-400); Red Blood Count 4.06 X10*6/uL (4.20-5.50); Red Cell Distribution Width 13.1 % (11.0-16.0); White Blood Count 7.2 X10*3/uL (4.8-10.8)
--- NOTE | 2022-10-28 15:23 | ED.ABDPAIN ---
HPI - Abdominal Pain General Chief Complaint: Abdominal Pain Stated Complaint: RIGHT FLANK PAIN Time Seen by Provider: 10/28/22 14:49 History of Present Illness HPI narrative: Patient is a 22-year-old female presents today with having right flank pain. History of UTI not treated complaining of increasing burning On urination. Positive nausea. Feeling weak and tired. Patient from home. No history kidney stones in the past. Her menstruation has been normal in timing and duration. Patient has is not think she is . No coughing or congestion or upper respiratory symptoms. No diaphoresis. Patient is from home. No focal weakness. Related Data Previous Rx's Medication Instructions Recorded escitalopram oxalate 10 mg tablet 10 mg PO DAILY 30 days #30 tabs 05/06/22 Allergies Allergy/AdvReac Type Severity Reaction Status Date / Time No Known Allergies Allergy Verified 01/08/21 01:58 [No Known Allergies*] Review of Systems Review of Systems No fever no chills no chest pain or shortness of breath no nausea no vomiting Yes all other systems are reviewed and are negative PMFSH Past Medical History Attestation statement: The following information was validated with the patient. Medical History Anxiety Depression Deviated nasal septum Hx: UTI (urinary tract infection) Kidney pain No known health problems Surgical History Hx of tonsillectomy Family History Family History Mother Anxiety and depression Father Brain tumor Seizures Sister No problems noted. Brother No problems noted. Brother No problems noted. Brother No problems noted. Social History Social History Household Members: Family and Children Housing: Apartment Do you presently have visiting nurse or other home services: No Alcohol intake: never Patient Tobacco Use Status: Never used Tobacco Substance Use Type: Marijuana Advance Directives: No Advance Directives Information Provided: Yes service: No Sexual orientation: Straight/Heterosexual Physical Exam ED Vital Signs: Vital Signs - 24 hr 10/28/22 14:56 Temperature 98.5 F Pulse Rate 78 Respiratory Rate 16 Blood Pressure 100/65 Pulse Oximetry 100 Oxygen Delivery Method Room Air BMI result Body Mass Index 18.3 Appearance: Alert. Oriented X3. No acute distress. Eyes: Pupils equal, round and reactive to light. ENT: Pharynx normal. Neck: Normal inspection. Neck supple. No lymph nodes noted. No crepitus CVS: Normal heart rate and rhythm. Pulses normal. Normal S1 and S2 Respiratory: No respiratory distress. Breath sounds normal. No Wheezing. No rales Abdomen: Soft and nontender. No rigidity. No distention. good BS x4. Positive CVA tenderness on the right side Skin: Skin warm and dry. Normal skin color. Normal skin turgor. Extremities: No lower extremity edema. Neurovascular intact to all extremities. No Lacerations. No Rash Neuro: Oriented X 3. No motor deficit. No sensory deficit. Moving all extermities. No slurred speech Medical Decision Making Differential Diagnosis Patient complaining of flank pain. Differential diagnosis includes , ectopic, urinary tract infection, kidney stone, ovarian issues, Appendicitis. Patient's urine showed no signs of infection but it did show signs of blood. Lab Data 10/28/22 15:01 10/28/22 15:01 Labs: Lab Results 10/28/22 10/28/22 10/28/22 Range/Units 15:01 15:01 16:08 WBC 7.2 (4.8-10.8) X10*3/uL RBC 4.06 L (4.20-5.50) X10*6/uL Hgb 11.8 L (12.0-16.0) g/dl Hct 35.5 L (37.0-47.0) % MCV 87.4 (80.0-98.0) fL MCH 29.1 (27.0-33.0) pg MCHC 33.2 (31.0-35.0) g/dl RDW 13.1 (11.0-16.0) % Plt Count 180 (160-400) X10*3/uL MPV 12.8 H (9.4-12.3) fL Absolute Nucleated RBC 0.000 (0.0-0.012) X10*3/uL Nucleated RBC % (auto) 0.0 (0.0-0.2) /100WBC Sodium 139 (135-145) mmol/L Potassium 4.1 (3.3-5.1) mmol/L Chloride 109 H (96-108) mmol/L Carbon Dioxide 20 L (22-29) mmol/L Anion Gap 14 (12-20) BUN 10 (9-16) mg/dL Creatinine 0.70 (0.5-1.4) mg/dL Estim Creat Clear Calc 91.0 Estimated GFR > 60 Random Glucose 82 (60-115) mg/dL Calcium 8.9 D (8.4-10.2) mg/dL Total Bilirubin 0.6 (0.0-1.0) mg/dL Direct Bilirubin 0.2 (0.0-0.5) mg/dL AST 16 (5-31) U/L ALT 7 (0-31) U/L Alkaline Phosphatase 60 (39-117) U/L Total Protein 6.2 L (6.5-8.0) g/dL Albumin 3.8 (3.5-5.0) g/dL Lipase 16 (8-78) U/L Beta HCG, Quant < 2 mIU/mL Urine Color Dark Yellow Urine Appearance Cloudy Urine pH 6.0 (5.0-9.0) Ur Specific [place] >= 1.030 H (1.005-1.025) Urine Protein 30 (1+) H (Neg-Trace) mg/dL Urine Glucose (UA) Negative (Negative) mg/dL Urine Ketones 40 (Negative) mg/dL Urine Blood Negative (Negative) Urine Nitrite Negative (Negative) Ur Leukocyte Esterase Negative (Negative) Urine RBC 3-5 H (0-2) /HPF Urine WBC 0-5 (0-5) /HPF Ur Squamous Epith Cells 11-20 (0-2) /HPF Urine Bacteria 1+ (None Seen) Hyaline Casts 0-2 (0-2) /LPF Medications Administered Discontinued Medications Generic Name Dose Route Start Last Admin Trade Name Freq PRN Reason Stop Dose Admin Sodium Chloride 1,000 mls @ 999 mls/hr 10/28/22 15:30 10/28/22 16:34 Ns IV 10/28/22 16:30 Infused .Q1H1M FESTUS Infusion Sodium Chloride 1,000 mls @ 999 mls/hr 10/28/22 15:30 10/28/22 16:34 Ns IV 10/28/22 16:30 Infused .Q1H1M FESTUS Infusion Ketorolac Tromethamine 30 mg 10/28/22 15:22 10/28/22 15:29 Ketorolac Tromethamine 30 Mg/Ml Vial IVPUSH 10/28/22 15:23 30 mg ONCE ONE Administration Ondansetron HCl 4 mg 10/28/22 15:22 10/28/22 15:30 Ondansetron Hcl 4 Mg/2 Ml Vial IVPUSH 10/28/22 15:23 4 mg ONCE ONE Administration Discharge Plan Discharge Clinical Impression: Acute flank pain Patient Disposition: Home, Self-Care Instructions: Flank Pain (ED) Prescriptions: No Action escitalopram oxalate 10 mg tablet 10 mg PO DAILY 30 Days Qty: 30 0RF Referrals: Rahul Farah MD [Physician] -
[2022-10-28 15:28] LABS: Anion Gap 14 (12-20); Blood Urea Nitrogen 10 mg/dL (9-16); Calcium 8.9 mg/dL (8.4-10.2); Carbon Dioxide 20 mmol/L (22-29); Chloride 109 mmol/L (96-108); Estimated Glomerular Filt Rate > 60; Glucose Random 82 mg/dL (60-115); Potassium 4.1 mmol/L (3.3-5.1); Sodium 139 mmol/L (135-145)
[2022-10-28] MEDS: Ketorolac Tromethamine 30 MG/ML VIAL IVPUSH (15:29)
[2022-10-28] MEDS: 0.9 % Sodium Chloride 1,000 ML 999 ML IV ×2 (15:30)
[2022-10-28] MEDS: ondansetron HCL 4 MG/2 ML VIAL IVPUSH (15:30)
[2022-10-28 16:02] LABS: Alanine Aminotransferase 7 U/L (0-31); Albumin Level 3.8 g/dL (3.5-5.0); Alkaline Phosphatase 60 U/L (39-117); Aspartate Amino Transferase 16 U/L (5-31); Bilirubin Direct 0.2 mg/dL (0.0-0.5); Bilirubin Total 0.6 mg/dL (0.0-1.0); HCG Quantitative < 2 mIU/mL; Lipase 16 U/L (8-78); Total Protein 6.2 g/dL (6.5-8.0)
[2022-10-28 16:16] LABS: Appearance Urine Cloudy; Color Urine Dark Yellow; Glucose Urine UA Negative (Negative); Leukocyte Esterase Urine Negative (Negative); Nitrite Urine Negative (Negative); Specific Gravity - Urine >= 1.030 (1.005-1.025); UMIC TRIGGER UACC YES; Urine Blood Negative (Negative); Urine Ketones 40 mg/dL (Negative); Urine Protein 30 (1+) mg/dL (Neg-Trace)
[2022-10-28 16:20] LABS: Bacteria Urine 1+ (None Seen); Hyaline Casts Urine 0-2 /LPF (0-2); WBC Urine 0-5 /HPF (0-5)
== END 2022-10-28 18:23 | disposition home or self-care (01) ==
PROVIDERS: Emergency Provider Emergency Medicine Emergency Medical Services
DX: R10.9 Unspecified abdominal pain (principal); Z79.899 Other long term (current) drug therapy
CPT/HCPCS: 36415; 74176; 80048; 80076; 81001; 83690; 84702; 85027; 96361; 96374; 96375; 99283; 99284; J1885; J2405

== ENCOUNTER 2022-10-30 19:21 | Emergency (ER) | payer MEDICAID, SELFPAY ==
[2022-10-30 19:44] VITALS: BP 114/76; PULSE 65; RESP 16; TEMP 36.3; O2SAT 98; BMI 18.3
--- OUTSIDE RECORDS SUMMARY | 2022-10-30 20:02 | XMS_ITS | Continuity of Care Document ---
:2000 Author Organization [facility] Address [address] [place] [address]- Care Team Providers Name Role Phone Janet Singletary MD Primary Care Physician Encounter [facility] Date(s): 05/23/20 - 06/24/20 [facility] [address] [place] [address]- [facility] Attending Physician: Janet Singletary MD Allergies, Adverse Reactions, Alerts Substance Reaction Severity Status NKA Active Immunizations Given and Recorded Vaccine Date Status Refusal Reason influenza virus vaccine, inactivated 08/20/18 Given influenza virus vaccine, inactivated1 08/21/17 Given influenza virus vaccine, inactivated 06/25/15 Given Human Papillomavirus Vaccine 08/21/17 Given Human Papillomavirus Vaccine 04/11/14 Given Meningococcal Conjugate Vaccine 08/21/17 Given Meningococcal Conjugate Vaccine 02/23/13 Given tetanus/diphtheria/pertussis, acel(Tdap) 02/23/13 Given Measles/Mumps/Rubella Virus Vaccine 12/23/12 Given Measles/Mumps/Rubella Virus Vaccine 06/23/07 Given Poliovirus Vaccine, Inactivated 06/23/07 Given Poliovirus Vaccine, Inactivated 03/24/03 Given Poliovirus Vaccine, Inactivated 03/21/02 Given Poliovirus Vaccine, Inactivated 01 Given Varicella Virus Vaccine 06/23/07 Given Varicella Virus Vaccine 12/23/02 Given diphtheria/tetanus/pertussis, acel(DTaP) 06/23/07 Given diphtheria/tetanus/pertussis, acel(DTaP) 12/02/02 Given diphtheria/tetanus/pertussis, acel(DTaP) 01 Given diphtheria/tetanus/pertussis, acel(DTaP) 01 Given diphtheria/tetanus/pertussis, acel(DTaP) 01 Given pneumococcal 7-valent vaccine 03/24/03 Given pneumococcal 7-valent vaccine 01 Given pneumococcal 7-valent vaccine 01 Given pneumococcal 7-valent vaccine 01 Given Haemophilus B conjugate (HbOC) vaccine 12/02/02 Given Haemophilus B conjugate (HbOC) vaccine 01 Given Haemophilus B conjugate (HbOC) vaccine 01 Given Haemophilus B conjugate (HbOC) vaccine 01 Given hepatitis B pediatric vaccine 03/21/02 Given hepatitis B pediatric vaccine 01 Given hepatitis B pediatric vaccine 01 Given 1Result Comment: [08/21/2017] [id number] Medications Cannabis (Schedule I Substance) 0 Refills, Maintenance, 04/17/20 18:42:00 EDT Start Date: 04/17/20 Status: OrderedDiflucan 150 mg oral tablet 1 tablet = 150 mg, By Mouth, Once, May repeat in 3 days if continued symptoms, # 2 tablet, 0 Refills, Soft Stop, 06/09/20 16:44:00 EDT, Tablet, [id number], 155, cm, 05/29/20 16:09:00 EDT, Height, 47.2, kg, 05/29/20 16:15:00 EDT, Dry W... Start Date: 06/09/20 Status: OrderedVitamin B12 0 Refills, Maintenance, 04/17/20 18:41:00 EDT Start Date: 04/17/20 Status: OrderedVitamin D3 By Mouth, Daily, 0 Refills, Maintenance, 04/17/20 18:41:00 EDT Start Date: 04/17/20 Status: Ordered Problem List Condition Effective Dates Status Health Status Informant Dysmenorrhea(Confirmed) Active Depression, major, recurrent, Active moderate(Confirmed) Social History Social History Type Response Smoking Status Never smoker; Tobacco user i n household: Yes; Other: mom somkes outside; entered on: 04/10/17 Sex
--- OUTSIDE RECORDS SUMMARY | 2022-10-30 20:02 | XMS_ITS | Continuity of Care Document ---
:2001 Author Organization [facility] Address [address] [place] [address]- Care Team Providers Name Role Phone Shaina MCKEON, Piedad Gabriel Primary Care Physician [facility] Date[facility]): 09[facility]21 - 09/21/[address] [address] Discharge Disposition: A-D/C Home Attending Physician: Ronaldo MCKEON December Admitting Physician: Ronaldo MCKEON December Referring Physician: Ronaldo MCKEON December Allergies, Adverse Reactions, Alerts Substance Reaction Severity Status NKA Active Immunizations Given and Recorded Vaccine Date Status Refusal Reason influenza virus vaccine, inactivated 08/20/18 Given influenza virus vaccine, inactivated1 08/21/17 Given influenza virus vaccine, inactivated 06/25/15 Given Human Papillomavirus Vaccine 08/21/17 Given Human Papillomavirus Vaccine 03/21/16 Recorded Human Papillomavirus Vaccine 04/11/14 Given Meningococcal Conjugate Vaccine 08/21/17 Given Meningococcal Conjugate Vaccine 02/23/13 Given tetanus/diphtheria/pertussis, acel(Tdap) 02/23/13 Given Measles/Mumps/Rubella Virus Vaccine 12/23/12 Given Measles/Mumps/Rubella Virus Vaccine 06/23/07 Given Measles/Mumps/Rubella Virus Vaccine 12/23/02 Recorded Poliovirus Vaccine, Inactivated 06/23/07 Given Poliovirus Vaccine, [...] Given hepatitis B pediatric vaccine 01 Given Not Given Vaccine Date Status Refusal Reason influenza virus vaccine, inactivated 09/21/21 Not Given Patient Refuses 1Result Comment: [08/21/2017] [id number] Medications Acetaminophen Tablet 650 mg, Tablet, By Mouth, Every 4 hours, PRN for Pain , Mild, (1-3), may give 325mg per patient preference and re-dose with 325mg within 4 hours, if needed. Patient should only receive a total of 650mgof Acetaminophen every 4 hours., Routine, 09/19... Start Date: 09/19/21 Stop Date: 09/21/21 Status: DiscontinuedDocusate Sodium Capsule 100 mg, 1, capsule, By Mouth, 2 times a day, PRN, Refills 0, Maintenance, Constipation, 09/21/21 12:15:00 EST, Partial fill upon patient request if the prescription is for a schedule II opioid drug. Start Date: 09/21/21 Status: Orderedibuprofen 800 mg oral tablet 800 mg, 1, tablet, By Mouth, Every 8 hours, PRN, (4-6), may give 400mg per patient preference and re-dose with 400mg within 8 hours if needed. Patient should only receive a total of 800mg of Ibuprofen every 8 hours., Refills 0, Maintenance, Pain , M... Start Date: 09/21/21 Status: OrderedIbuprofen Tablet 800 mg, Tablet, By Mouth, Every 8 hours, PRN for Pain , Moderate, (4-6), may give 400mg per patient preference and re-dose with 400mg within 8 hours if needed. Patient should only receive a total of 800mg of Ibuprofen every 8 hours., Routine, ... Start Date: 09/19/21 Stop Date: 09/21/21 Status: DiscontinuedMultivitamin Tablet 0 Refills, Maintenance, 09/18/21 16:06:00 EST, Partial fill upon patient request if the prescriptionis for a schedule II opioid drug. Start Date: 09/18/21 Status: OrderedTylenol Extra Strength 500 mg oral tablet 2 tablet = 1,000 mg, By Mouth, Every 6 hours, 0 Refills, Maintenance, 02/16/21 16:29:00 EDT, Partialfill upon patient request if the prescription is for a schedule II opioid drug. Start Date: 02/16/21 Status: Ordered Problem List Condition Effective Dates Status Health Status Informant Dysmenorrhea(Confirmed) Active History of chlamydia 04/2019 Active infection(Confirmed) Depression, major, recurrent, Active moderate(Confirmed) Vital Signs Most recent to oldest 1 2 3 [Reference Range]: Height 157 cm 157 cm 157 cm (09/21/21 8:00 AM) (09/21/21 12:00 AM) (09/20/21 11:27 AM) Weight 64.6 kg 64.6 kg (09/18/21 6:41 PM) (09/18/21 3:53 PM) Oxygen Saturation [94-100 100 % 99 % 97 % %] (09/21/21 12:00 AM) (09/20/21 6:23 PM) (09/19/21 11:30 PM) Pulse Rate [55-90 bpm] 113 bpm 95 bpm 99 bpm *H* *H* *H* (09/21/21 8:00 AM) (09/21/21 12:00 AM) (09/20/21 6:23 PM) Body Mass Index 26.21 [18.5-24.99] *H* (09/18/21 6:41 PM) Blood Pressure 119/79 mm Hg 111/68 mm Hg 106/77 mm Hg [90-138/55-84 mm Hg] (09/21/21 8:00 AM) (09/21/21 12:00 AM) (08/01 6:23 PM) Respiratory Rate [16-30 18 br/min 18 br/min 18 br/mi n br/min] (09/21/21 9:14 AM) (09/21/21 9:14 AM) (09/21/21 8:00 AM) Temperature [96.8-100.4 98.1 DegF 98.1 DegF 98.1 Deg F DegF] (09/21/21 8:00 AM) (09/21/21 12:00 AM) (09/20/21 6:23 PM) Mode of Delivery (Oxygen) Room air Room air Room a ir (09/21/21 12:00 AM) (09/20/21 6:23 PM) (09/19/21 11:30 PM) Blood pressure sites Arm, left Arm, left Arm, right (09/21/21 8:00 AM) (09/20/21 6:23 PM) (09/20/21 11:27 AM) Temperature Route Oral Oral Oral (09/21/21 8:00 AM) (09/21/21 12:00 AM) (09/20/21 6:23 PM) Dry Weight 64.6 kg 64.6 kg (09/18/21 6:41 PM) (09/18/21 3:53 PM) Weight Obtained Via Standing scale (09/18/21 3:53 PM) Dry Weight Obtained Via Standing scale (09/18/21 3:53 PM) Social History Social History Type Response Smoking Status Never (less than 100 in life time) entered on: 04/10/21 Sex Female
--- OUTSIDE RECORDS SUMMARY | 2022-10-30 20:02 | XMS_ITS | Continuity of Care Document ---
:[address] [facility] Address [address] [place] [address]- Care Team Providers Name Role Phone Hayder MCKEON, Janet Primary Care Physician [facility] Date(s): 06/25/20 - 07/25/20 [facility] [address] [place] [address]- [facility] Allergies, Adverse Reactions, Alerts Substance Reaction Severity [...] pediatric vaccine 01 Given 1Result Comment: [08/21/2017] [id number] Medications Cannabis (Schedule I Substance) 0 Refills, Maintenance, 04/17/20 18:42:00 EDT Start Date: 04/17/20 Status: OrderedDiflucan 150 mg oral tablet 1 tablet = 150 mg, By Mouth, Once, May repeat in 3 days if continued symptoms, # 2 tablet, 0 Refills, Soft Stop, 06/09/20 16:44:00 EDT, Tablet, [facility] #[id number], 155, cm, 05/29/20 16:09:00 EDT, Height, 47.2, [...]
--- OUTSIDE RECORDS SUMMARY | 2022-10-30 20:02 | XMS_ITS | Continuity of Care Document ---
:2001 Author Organization [facility] Address [address] [place] [address]- Care Team Providers Name Role Phone Janet Singletary MD Primary Care Physician [facility] Date[facility]s): 12/19/20 - 04/18/21 [facility] [address] [place], [place] [address] Attending Physician: Janet Singletary MD Allergies, Adverse [...] pediatric vaccine 01 Given 1Result Comment: [08/21/2017] [id number] Medications ondansetron 4 mg oral tablet 1 tablet = 4 mg, By Mouth, Every 8 hours, PRN as needed for nausea/vomiting, # 9 tablet, 0 Refills, Maintenance, 01/08/21 18:11:00 EDT, [id number] Partial fill upon patient request if the prescription is for a schedule II opi... Start Date: 01/08/21 Stop Date: 01/11/21 Status: OrderedTylenol Extra Strength 500 mg oral [...]
--- OUTSIDE RECORDS SUMMARY | 2022-10-30 20:02 | XMS_ITS | Continuity of Care Document ---
:2001 Author Organization [facility] Address [address] [place] [address]- Care Team Providers Name Role Phone Janet Singletary MD Primary Care Physician Encounter [facility] Date(s): 05/29/20 - 06/05/20 [facility] [place] [address]- [facility] Encounter Diagnosis Low back strain (Discharge Diagnosis) - 05/29/20 Attending Physician: Kimo Gregorio MD Referring Physician: Janet Singletary MD Allergies, Adverse Reactions, [...] pediatric vaccine 01 Given 1Result Comment: [08/21/2017] [id number] Medications Cannabis (Schedule I Substance) 0 Refills, Maintenance, 04/17/20 18:42:00 EDT Start Date: 04/17/20 Status: OrderedVitamin B12 0 Refills, Maintenance, 04/17/20 18:41:00 EDT Start Date: 04/17/20 Status: OrderedVitamin D3 By Mouth, Daily, 0 Refills, Maintenance, 04/17/20 18:41:00 EDT Start Date: 04/17/20 Status: Ordered Problem List Condition Effective Dates Status Health Status Informant Dysmenorrhea(Confirmed) Active Depression, major, recurrent, Active moderate(Confirmed) Diagnosis Diagnosis Type Effective Dates Health Status Clinical In formant Service Low back strain Discharge 05/29/20 Diagnosis Vital Signs Most recent to oldest [Reference Range]: 1 Height 155 cm (05/29/20 4:09 PM) Weight 47.2 kg (05/29/20 4:09 PM) Oxygen Saturation [94-100 %] 100 % (05/29/20 4:09 PM) Pulse Rate [55-90 bpm] 89 bpm (05/29/20 4:09 PM) Body Mass Index [18.5-24.99] 19.65 (05/29/20 4:09 PM) Blood Pressure [71-110/30-71 mm Hg] 113/78 mm Hg *H* (05/29/20 4:09 PM) Respiratory Rate [16-30 br/min] 16 br/min (05/29/20 4:09 PM) Temperature [96.8-100.4 DegF] 97.5 DegF (05/29/20 4:09 PM) Mode of Delivery (Oxygen) Room air (05/29/20 4:09 PM) Blood pressure sites Arm, right (05/29/20 4:09 PM) Temperature Route Temporal (05/29/20 4:09 PM) Dry Weight 47.2 kg (05/29/20 4:09 PM) Weight Obtained Via Standing scale (05/29/20 4:09 PM) Dry Weight Obtained Via Standing scale (05/29/20 4:09 PM) Social History Social History Type Response Smoking Status Never smoker; Tobacco user i n household: Yes; Other: mom somkes outside; entered on: 04/10/17 Sex
--- OUTSIDE RECORDS SUMMARY | 2022-10-30 20:02 | XMS_ITS | Continuity of Care Document ---
:2001 Author Organization [facility] Address [address] [place] [address]- Care Team Providers Name Role Phone Piedad Merritt MD Primary Care Physician [facility] Date[facility]s): 05/01/22 - 05/08/22 [facility] [address] [place], [place] [address] Attending Physician: Piedad Merritt MD Allergies, Adverse Reactions, Alerts No Known Allergies Immunizations Given and Recorded Vaccine Date Status Refusal Reason tetanus/diphtheria/pertussis, acel(Tdap) 07/12/21 Recorde d tetanus/diphtheria/pertussis, acel(Tdap) 02/23/13 Given influenza virus vaccine, inactivated 08/20/18 Given influenza virus vaccine, inactivated1 08/21/17 Given influenza virus vaccine, inactivated 06/25/15 Given Human Papillomavirus Vaccine 08/21/17 Given Human Papillomavirus Vaccine 03/21/16 Recorded Human Papillomavirus Vaccine 04/11/14 Given Meningococcal Conjugate Vaccine 08/21/17 Given Meningococcal Conjugate Vaccine 02/23/13 Given Measles/Mumps/Rubella Virus Vaccine 12/23/12 Given [...] Not Given Patient Refuses 1Result Comment: [08/21/2017] [id number] Medications Docusate Sodium Capsule 100 mg, 1, capsule, By Mouth, 2 times a day, PRN, Refills 0, Maintenance, Constipation, 09/21/21 12:15:00 EST, Partial fill upon patient request if the prescription is for a schedule II opioid drug. Start Date: 09/21/21 Status: Orderedescitalopram 10 mg oral tablet 1 tablet = 10 mg, By Mouth, Daily, NO REFILLS WITHOUT OFFICE VISIT, # 30 tablet, 1 Refills, Maintenance, 01/29/22 16:08:00 EDT, Tablet, [facility] #[id number], Partial fill upon patient request ifthe prescription is for a schedule II opioid drug... Start Date: 01/29/22 Stop Date: 03/30/22 Status: Orderedibuprofen 800 mg oral tablet 800 mg, 1, tablet, By Mouth, Every 8 hours, PRN, (4-6), may give 400mg per patient preference and re-dose with 400mg within 8 hours if needed. Patient should only receive a total of 800mg of Ibuprofen every 8 hours., Refills 0, Maintenance, Pain , M... Start Date: 09/21/21 Status: OrderedMultivitamin Tablet 0 Refills, Maintenance, 09/18/21 16:06:00 EST, Partial fill upon patient request if the prescriptionis for a schedule II opioid drug. Start Date: 09/18/21 Status: Orderedondansetron 4 mg oral tablet 1 tablet = 4 mg, By Mouth, Every 8 hours, PRN Nausea & Vomiting, # 10 tablet, 0 Refills, Acute 12/24/22 7:07:00 EDT, 12/23/21 7:06:00 EDT, Tablet, [facility] #[id number], Partial fill upon patient request if the prescription is for a schedule II... Start Date: 12/23/21 Stop Date: 12/24/22 Status: OrderedTylenol Extra Strength 500 mg oral tablet 2 tablet = 1,000 mg, By Mouth, Every 6 hours, 0 Refills, Maintenance, 02/16/21 16:29:00 EDT, Partialfill upon patient request if the prescription is for a schedule II opioid drug. Start Date: 02/16/21 Status: OrderedZithromax 500 mg oral tablet 2 tablet = 1,000 mg, By Mouth, Once, # 2 tablet, 0 Refills, Soft Stop, 03/28/22 18:33:00 EDT, Tablet, [facility] #[id number], Partial fill upon patient request if the prescription is for a schedule II opioid drug., 157, cm, 03/28/22 17:02:00 EDT,... Start Date: 03/28/22 Status: Ordered Problem List Condition Effective Dates Status Health Status Informant Dysmenorrhea(Confirmed) Active History of chlamydia 04/2019 Active infection(Confirmed) Depression, major, recurrent, Active moderate(Confirmed) Social History Social History Type Response Smoking Status Never (less than 100 in life time) entered on: 04/10/21 Sex
--- OUTSIDE RECORDS SUMMARY | 2022-10-30 20:02 | XMS_ITS | Continuity of Care Document ---
:2001 Author Organization [facility] Address [address] [place] [address]- Care Team Providers Name Role Phone Piedad Merritt MD Primary Care Physician [facility] Date(s): 06/03/22 - 07/06/22 [facility] [address] [place], [place] [address] Attending Physician: Piedad Merritt MD Allergies, Adverse [...] Not Given Patient Refuses 1Result Comment: [08/21/2017] [id number] Medications Docusate Sodium Capsule 100 mg, 1, capsule, By Mouth, 2 times a day, PRN, Refills 0, Maintenance, Constipation, 09/21/21 12:15:00 EST, Partial fill upon patient request if the prescription is for a schedule II opioid drug. Start Date: 09/21/21 Status: Orderedescitalopram 10 mg oral tablet 1 tablet = 10 mg, By Mouth, Daily, # 30 tablet, 2 Refills, Maintenance, 05/16/22 17:10:00 EDT, Tablet, [facility]acy #[id number], Partial fill upon patient request if the prescription is for a schedule II opioid drug., 157, cm, 04/15/22 15:01:00 EDT, Height,... Start Date: 05/16/22 Stop Date: 08/14/22 Status: Orderedibuprofen 800 mg oral tablet 800 [...] 12/24/22 7:07:00 EDT, 12/23/21 7:06:00 EDT, Tablet, [facility] #[id number], Partial fill upon patient request if the [...] Refills, Soft Stop, 03/28/22 18:33:00 EDT, Tablet, [facility] #[id number], Partial fill upon patient request if the [...] in life time) entered on: 04/10/21 Sex Care Team PersonnelName: Shaina MCKEON, Piedad Gabreil Address: [address] [place] [address] Adult & Pediatric [place], [place] [address]
--- OUTSIDE RECORDS SUMMARY | 2022-10-30 20:02 | XMS_ITS | Continuity of Care Document ---
:2001 Author Organization [facility] Address [address] [place] [address]- Care Team Providers Name Role Phone Piedad Merritt MD Primary Care Physician [facility] Date[facility]s): 11/10/21 - 12/10/21 [facility] [address] [place], [place] [address] Allergies, Adverse Reactions, Alerts No Known Allergies [...] Not Given Patient Refuses 1Result Comment: [08/21/2017] [id number] Medications Docusate Sodium Capsule 100 mg, 1, [...]
--- OUTSIDE RECORDS SUMMARY | 2022-10-30 20:02 | XMS_ITS | Continuity of Care Document ---
:2001 Author Organization [facility] Address [address] [place] [address]- Care Team Providers Name Role Phone Janet Singletary MD Primary Care Physician Encounter [facility] Date(s): 04/23/20 - 04/30/20 [facility] [address] [place] [address]- [facility] Attending Physician: Bartolo Hernandez MD Referring Physician: Janet Singletary MD Allergies, [...] pediatric vaccine 01 Given 1Result Comment: [08/21/2017] [id number] Medications Cannabis (Schedule I Substance) 0 Refills, Maintenance, 04/17/20 18:42:00 EDT Start Date: 04/17/20 Status: Orderedmelatonin 3 mg oral tablet 2 tablet = 6 mg, By Mouth, Daily at bedtime, PRN Sleep, # 60 tablet, 0 Refills, Acute 05/12/20 12:00:00 EDT, 04/03/20 9:30:00 EDT, Tablet, [facility] #[id number], 155, cm, 04/02/20 20:55:00 EDT, Height, 45, kg, 03/29/20 15:50:00 EDT, Dry Weight Start Date: 04/03/20 Stop Date: 05/12/20 Status: OrderedVitamin B12 0 Refills, Maintenance, 04/17/20 18:41:00 EDT Start Date: 04/17/20 Status: OrderedVitamin D3 By Mouth, Daily, 0 Refills, Maintenance, 04/17/20 18:41:00 EDT Start Date: 04/17/20 Status: Ordered Problem List Condition Effective Dates Status Health Status Informant Dysmenorrhea(Confirmed) Active Depression, major, recurrent, Active moderate(Confirmed) Vital Signs Most recent to oldest [Reference Range]: 1 Height 155 cm (04/23/20 6:26 PM) Weight 45.8 kg (04/23/20 6:26 PM) Oxygen Saturation [94-100 %] 99 % (04/23/20 6:26 PM) Pulse Rate [55-90 bpm] 81 bpm (04/23/20 6:26 PM) Body Mass Index [18.5-24.99] 19.06 (04/23/20 6:26 PM) Blood Pressure [71-110/30-71 mm Hg] 111/68 mm Hg *H* (04/23/20 6:26 PM) Respiratory Rate [16-30 br/min] 17 br/min (04/23/20 6:26 PM) Temperature [96.8-100.4 DegF] 97.8 DegF (04/23/20 6:26 PM) Mode of Delivery (Oxygen) Room air (04/23/20 6:26 PM) Blood pressure sites Arm, right (04/23/20 6:26 PM) Temperature Route Temporal (04/23/20 6:26 PM) Dry Weight 45.8 kg (04/23/20 6:26 PM) Weight Obtained Via Standing scale (04/23/20 6:26 PM) Dry Weight Obtained Via Standing scale (04/23/20 6:26 PM) Social History Social History Type Response Smoking Status Never smoker; Tobacco user i n household: Yes; Other: mom somkes outside; entered on: 04/10/17 Sex
--- OUTSIDE RECORDS SUMMARY | 2022-10-30 20:02 | XMS_ITS | Continuity of Care Document ---
:2001 Author Organization [facility] Address [address] [place] [address]- Care Team Providers Name Role Phone Janet Singletary MD Primary Care Physician [facility] Date(s): 10/21/19 - 10/31/19 [facility] [address] [place] [address]- [facility] Attending Physician: Ezekiel Aguilar Admitting Physician: Ezekiel Aguilar Referring Physician: AdmtrEzekiel Allergies, Adverse Reactions, Alerts Substance Reaction Severity [...] pediatric vaccine 01 Given 1Result Comment: [08/21/2017] [id number] Medications Ortho Tri-Cyclen Lo oral tablet 1 tablet, By Mouth, Daily, # 84 tablet, 3 Refills, Maintenance, 07/12/19 15:18:18 EDT, Tablet, 1 tablet By Mouth Daily Start Date: 07/12/19 Status: Orderedsimethicone 80 mg oral tablet 1 tablet = 80 mg, Chew, 3 times a day after meals, PRN as needed for gas, # 60 tablet, 0 Refills, Acute 05/01/20 16:52:00 EDT, 04/07/19 16:52:30 EDT, Tablet Start Date: 04/07/19 Stop Date: 05/01/20 Status: OrderedZyrTEC 10 mg oral tablet 1 tablet = 10 mg, By Mouth, Daily, # 30 tablet, 0 Refills, Maintenance, 09/17/19 14:36:01 EST, Tablet, 161, cm, 09/17/19 14:13:52 EST, Height, 51.1, kg, 09/17/19 14:13:52 EST, Dry Weight Start Date: 09/17/19 Status: Ordered Problem List Condition Effective Dates Status Health Status Informant Depression, major, recurrent, Active moderate(Confirmed) Social History Social History Type Response Smoking Status Never smoker; Tobacco user i n household: Yes; Other: mom somkes outside; entered on: 04/10/17 Sex
--- OUTSIDE RECORDS SUMMARY | 2022-10-30 20:02 | XMS_ITS | Continuity of Care Document ---
:2001 Author Organization [facility] Address [address] [place] [address]- Care Team Providers Name Role Phone Janet Singletary MD Primary Care Physician [facility] Date(s): 05/29/20 - 06/28/20 [facility] [address] [place] [address]- [facility] Attending Physician: Ezekiel Aguilar Admitting Physician: Ezekiel [...] pediatric vaccine 01 Given 1Result Comment: [08/21/2017] [id number] Medications Cannabis (Schedule I Substance) 0 Refills, Maintenance, 04/17/20 18:42:00 EDT Start Date: 04/17/20 Status: OrderedDiflucan 150 mg oral tablet 1 tablet = 150 mg, By Mouth, Once, May repeat in 3 days if continued symptoms, # 2 tablet, 0 Refills, Soft Stop, 06/09/20 16:44:00 EDT, Tablet, [facility] #[id number], 155, cm, 05/29/20 16:09:00 EDT, Height, 47.2, [...]
--- OUTSIDE RECORDS SUMMARY | 2022-10-30 20:02 | XMS_ITS | Continuity of Care Document ---
:2001 Author Organization [facility] Address [address] [place] [address]- Care Team Providers Name Role Phone Janet Singletary MD Primary Care Physician Encounter [facility] Date(s): 11/29/19 - 12/06/19 [facility] [address] [place] [address]- [facility] Attending Physician: Kimo Gregorio MD Referring Physician: [...] pediatric vaccine 01 Given 1Result Comment: [08/21/2017] [id number] Medications clotrimazole 1% topical cream 1 application, Topically, 2 times a day, for 10 days, # 45 Gm, 0 Refills, Acute 12/09/19 17:37:00 EST, 11/29/19 17:37:00 EST, Cream, [facility] #[id number], 1 application Topically 2 times a day,x10 days, 161, cm, 11/29/19 17:04:00 EST, Height, 5... Start Date: 11/29/19 Stop Date: 12/09/19 Status: OrderedDiflucan 150 mg oral tablet See Instructions, 1 tablet PO QD on day 1, 3 and 7., # 3 tablet, 0 Refills, Soft Stop, 11/29/19 17:36:00 EST, Tablet, [facility] #[id number], 161, cm, 11/29/19 17:04:00 EST, Height, 51.3, kg, 11/29/19 17:04:00 EST, Dry Weight Start Date: 11/29/19 Status: OrderedOrtho Tri-Cyclen Lo oral tablet 1 tablet, By [...] Status Informant Depression, major, recurrent, Active moderate(Confirmed) Vital Signs Most recent to oldest [Reference Range]: 1 Height 161 cm (11/29/19 5:04 PM) Weight 51.3 kg (11/29/19 5:04 PM) Oxygen Saturation [94-100 %] 100 % (11/29/19 5:04 PM) Pulse Rate [55-90 bpm] 84 bpm (11/29/19 5:04 PM) Body Mass Index [18.5-24.99] 19.79 (11/29/19 5:04 PM) Blood Pressure [71-110/30-71 mm Hg] 120/60 mm Hg *H* (11/29/19 5:04 PM) Respiratory Rate [16-30 br/min] 15 br/min *L* (11/29/19 5:04 PM) Temperature [96.8-100.4 DegF] 98.4 DegF (11/29/19 5:04 PM) Mode of Delivery (Oxygen) Room air (11/29/19 5:04 PM) Blood pressure sites Arm, left (11/29/19 5:04 PM) Temperature Route Oral (11/29/19 5:04 PM) Dry Weight 51.3 kg (11/29/19 5:04 PM) Weight Obtained Via Standing scale (11/29/19 5:04 PM) Dry Weight Obtained Via Standing scale (11/29/19 5:04 PM) Social History Social History Type Response Smoking Status Never smoker; Tobacco user i n household: Yes; Other: mom somkes outside; entered on: 04/10/17 Sex
--- OUTSIDE RECORDS SUMMARY | 2022-10-30 20:02 | XMS_ITS | Continuity of Care Document ---
:2001 Author Organization [facility] Address [address] [place] [address]- Care Team Providers Name Role Phone Janet Singletary MD Primary Care Physician [facility] Date(s): 11/29/19 - 12/09/19 [facility] [address] [place] [address]- [facility] Attending Physician: Ezekiel Aguilar Admitting Physician: AdmEzekiel rivas Referring Physician: AdmtrEzekiel Allergies, Adverse Reactions, Alerts [...] pediatric vaccine 01 Given 1Result Comment: [08/21/2017] [id number] Medications Diflucan 150 mg oral tablet See Instructions, 1 tablet PO QD on day 1, 3 and 7., # 3 tablet, 0 Refills, Soft Stop, 11/29/19 17:36:00 EST, Tablet, [facility] #[id number], 161, cm, 11/29/19 17:04:00 EST, Height, 51.3, [...]
--- OUTSIDE RECORDS SUMMARY | 2022-10-30 20:02 | XMS_ITS | Continuity of Care Document ---
:2001 Author Organization [facility] Address [address] [place] [address]- Care Team Providers Name Role Phone Shaina MCKEON, Piedad Gabriel Primary Care Physician [facility]22 - 07/03/22 [facility] [address] [place], [place] [address] Allergies, Adverse Reactions, Alerts No Known Allergies [...] Not Given Patient Refuses 1Result Comment: [08/21/2017] [id number] Medications Docusate Sodium Capsule 100 mg, 1, [...] 2 Refills, Maintenance, 05/16/22 17:10:00 EDT, Tablet, [facility]/pharmacy #[id number], Partial fill upon patient request if [...] 12/24/22 7:07:00 EDT, 12/23/21 7:06:00 EDT, Tablet, [facility] #[id number], Partial fill upon patient request if the [...] Refills, Soft Stop, 03/28/22 18:33:00 EDT, Tablet, [facility] #[id number], Partial fill upon patient request if the [...] Sex Care Team PersonnelName: Shaina MCKEON, Piedad Gabriel Address: [address] [place] [address] Adult & Pediatric [address]
--- OUTSIDE RECORDS SUMMARY | 2022-10-30 20:02 | XMS_ITS | Continuity of Care Document ---
:2001 Author Organization [facility] Address [address] [place] [address]- Care Team Providers Name Role Phone Janet Singletary MD Primary Care Physician [facility]s): 10/21/19 - 11/20/19 [facility] [address] [place] [address]- [facility] Attending Physician: Kimo Gregorio MD Referring Physician: [...] pediatric vaccine 01 Given 1Result Comment: [08/21/2017] [id number] Medications Ortho Tri-Cyclen Lo oral tablet 1 [...]
--- OUTSIDE RECORDS SUMMARY | 2022-10-30 20:02 | XMS_ITS | Continuity of Care Document ---
:2001 Author Organization [facility] Address [address] [place] [address]- Care Team Providers Name Role Phone Shaina MCKEON, Piedad Gabriel Primary Care Physician [facility] Date(s): 08/04/22 - 09/03/22 [facility] [address] [place] [address]- Allergies, Adverse Reactions, Alerts No Known Allergies Immunizations Given and Recorded Vaccine Date Status Refusal Reason tetanus/diphtheria/pertussis, acel(Tdap) 07/12/21 Recorde d tetanus/diphtheria/pertussis, acel(Tdap) 02/23/13 Given influenza virus vaccine, inactivated 08/20/18 Given influenza virus vaccine, inactivated1 08/21/17 Given influenza virus vaccine, inactivated 06/25/15 Given influenza virus vaccine, inactivated 07/29/14 Recorded influenza virus vaccine, inactivated 10/21/12 Recorded influenza virus vaccine, inactivated 07/07/11 Recorded influenza virus vaccine, inactivated 08/13/09 Recorded Human Papillomavirus Vaccine 08/21/17 Given Human Papillomavirus [...] Not Given Patient Refuses 1Result Comment: [08/21/2017] [id number] Medications Tylenol Extra Strength 500 mg oral tablet 2 tablet = 1,000 mg, By Mouth, Every 6 hours, 0 Refills, Maintenance, 02/16/21 16:29:00 EDT, Partialfill upon patient request if the prescription is for a schedule II opioid drug. Start Date: 02/16/21 Status: Ordered Problem List Condition Confirmation Course Effective Dates Status Health Stat us Informant Dysmenorrhea Confirmed Active History of Confirmed 04/2019 Active chlamydia infection Depression, major, Confirmed Active recurrent, moderate Social History Social History Type Response Smoking Status Never (less than 100 in life time) entered on: 04/10/21 Sex Patient Care team information Care Team PersonnelName: Piedad Merritt MD Position: [facility] Primary Care Physician Member Role: PCP Address: Address: [address] [place] [address] Adult [place] [address]- Care Team Related PersonsName: MALCOLM KRISHNAMURTHY Address: home [address] [place] [address] Name: ANAM QUIROZ Address: [address] [address] Name: AYAKA QUIROZ Name: JERI CAIN Address: [address] Address: [address]
--- OUTSIDE RECORDS SUMMARY | 2022-10-30 20:02 | XMS_ITS | Continuity of Care Document ---
:2001 Author Organization [facility] Address [address] [place] [address]- Care Team Providers Name Role Phone Hayder MCKEON, Janet Primary Care Physician [facility]s): 08/26/20 - 09/25/20 [facility] [address] [place] [address]- Attending Physician: Ezekiel Aguilar Admitting Physician: AdmEzekiel [...] pediatric vaccine 01 Given 1Result Comment: [08/21/2017] [id number] Medications Cannabis (Schedule I Substance) 0 Refills, Maintenance, 04/17/20 18:42:00 EDT Start Date: 04/17/20 Status: OrderedNuvaRing 0.015 mg-0.120 mg vaginal ring 1 each, Vaginally, Rx by [employer] [facility], 0 Refills, Maintenance, 09/18/20 14:19:00 EST, Partial fill upon patient request if the prescription is for a schedule II opioid drug. Start Date: 09/18/20 Status: OrderedVitamin B12 0 Refills, Maintenance, 04/17/20 18:41:00 EDT Start Date: 04/17/20 Status: OrderedVitamin D3 By Mouth, Daily, 0 Refills, Maintenance, 04/17/20 18:41:00 EDT Start Date: 04/17/20 Status: Ordered Problem List Condition Effective Dates Status Health Status Informant Dysmenorrhea(Confirmed) Active Depression, major, recurrent, Active moderate(Confirmed) Social History Social History Type Response Smoking Status Never (less than 100 in life time); Tobacco user in household: Yes; Other: Mom smokes outside.; entered on: 09/18/20 Sex
--- OUTSIDE RECORDS SUMMARY | 2022-10-30 20:02 | XMS_ITS | Continuity of Care Document ---
:2001 Author Organization [facility] Address [address] [place] [address]- Care Team Providers Name Role Phone Janet Singletary MD Primary Care Physician [facility]s): 01/10/20 - 01/17/20 [facility] [address] [place] [address]- [facility] Attending Physician: Janet Singletary MD Allergies, Adverse [...] pediatric vaccine 01 Given 1Result Comment: [08/21/2017] [id number] Medications Diflucan 150 mg oral tablet 1 tablet = 150 mg, By Mouth, Once, # 1 tablet, 0 Refills, Soft Stop, 01/12/20 14:26:00 EDT, Tablet, [facility] #[id number], 161, cm, 12/15/19 13:09:00 EST, Height, 51.3, kg, 11/29/19 17:04:00 EST,Dry Weight Start Date: 01/12/20 Status: OrderedFlonase 50 mcg/inh nasal spray 1 sprays, Nares, Both, 2 times a day, # 16 Gm, 0 Refills, Maintenance, 12/15/19 13:34:00 EST, [place] #[id number], 1 sprays Nares, Both 2 times a day, 161, cm, 12/15/19 13:09:00 EST, Height, 51.3, kg, 11/29/19 17:04:00 EST, Dry Weight Start Date: 12/15/19 Status: OrderedOrtho Tri-Cyclen Lo oral tablet 1 tablet, By Mouth, Daily, # 84 tablet, 3 Refills, Maintenance, 07/12/19 15:18:18 EDT, Tablet, 1 tablet By Mouth Daily Start Date: 07/12/19 Status: OrderedPlan B One-Step 1.5 mg oral tablet 1.5 mg, 1, tablet, By Mouth, Once, # 1 tablet, Refills 0, Tot. Refills 0, Soft Stop, 12/30/19 14:03:00 EDT, Route to Pharmacy Electronically, [facility] #[id number], 161, cm, 12/15/19 13:09:00 EST, Height, 51.3, kg, 11/29/19 17:04:00 EST, Dry Weight Start Date: 12/30/19 Status: Orderedsimethicone 80 mg oral tablet 1 tablet = 80 mg, Chew, 3 times a day after meals, PRN as needed for gas, # 60 tablet, 0 Refills, Acute 05/01/20 16:52:00 EDT, 04/07/19 16:52:30 EDT, Tablet Start Date: 04/07/19 Stop Date: 05/01/20 Status: OrderedZofran 4 mg oral tablet 1 tablet = 4 mg, By Mouth, Every 8 hours, PRN Nausea, # 15 tablet, 0 Refills, Maintenance, 01/10/20 14:46:00 EDT, Tablet, [facility] #[id number], 161, cm, 12/15/19 13:09:00 EST, Height, 51.3, kg, 11/29/19 17:04:00 EST, Dry Weight Start Date: 01/10/20 Status: OrderedZyrTEC 10 mg oral tablet 1 [...]
--- OUTSIDE RECORDS SUMMARY | 2022-10-30 20:02 | XMS_ITS | Continuity of Care Document ---
:2001 Author Organization [facility] Address [address] [place] [address]- Care Team Providers Name Role Phone Hayder MCKEON, Janet Primary Care Physician [facility] 01/08/21 - 02/07/21 [facility] [address] [place] [address]- Attending Physician: Ezekiel Aguilar Admitting Physician: Ezekiel [...] pediatric vaccine 01 Given 1Result Comment: [08/21/2017] [id number] Medications ondansetron 4 mg oral tablet 1 tablet = 4 mg, By Mouth, Every 8 hours, PRN as needed for nausea/vomiting, # 9 tablet, 0 Refills, Maintenance, 01/08/21 18:11:00 EDT, [facility], [id number], Partial fill upon patient request if the prescription is for a schedule II opi... Start Date: 01/08/21 Stop Date: 01/11/21 Status: Ordered Problem List Condition Effective Dates Status Health Status Informant Dysmenorrhea(Confirmed) Active Depression, major, recurrent, Active moderate(Confirmed) Social History Social History Type Response Smoking Status Never (less than 100 in life time); Tobacco user in household: Yes; Other: Mom smokes outside.; entered on: 09/18/20 Sex
--- OUTSIDE RECORDS SUMMARY | 2022-10-30 20:02 | XMS_ITS | Continuity of Care Document ---
:2001 Author Organization [facility] Address [address] [place] [address]- Care Team Providers Name Role Phone Janet Singletary MD Primary Care Physician [facility]s): 12/30/19 - 02/03/20 [facility] [address] [place] [address]- [facility] Attending Physician: Janet Singletary MD Allergies, Adverse [...] pediatric vaccine 01 Given 1Result Comment: [08/21/2017] [id number] Medications Diflucan 150 mg oral tablet 1 tablet = 150 mg, By Mouth, Once, # 1 tablet, 0 Refills, Soft Stop, 01/12/20 14:26:00 EDT, Tablet, [facility] #[id number], 161, cm, 12/15/19 13:09:00 EST, Height, 51.3, kg, 11/29/19 17:04:00 EST,Dry Weight Start Date: 01/12/20 Status: OrderedFlonase 50 mcg/inh nasal spray 1 sprays, Nares, Both, 2 times a day, # 16 Gm, 0 Refills, Maintenance, 12/15/19 13:34:00 EST, [place] #[id number], 1 sprays Nares, Both 2 times a [...] 12/30/19 14:03:00 EDT, Route to Pharmacy Electronically, [facility] #[id number], 161, cm, 12/15/19 13:09:00 EST, Height, 51.3, [...] 0 Refills, Maintenance, 01/10/20 14:46:00 EDT, Tablet, [facility] #[id number], 161, cm, 12/15/19 13:09:00 EST, Height, 51.3, [...]
--- OUTSIDE RECORDS SUMMARY | 2022-10-30 20:02 | XMS_ITS | Continuity of Care Document ---
:2001 Author Organization [facility] Address [address] [place] [address]- Care Team Providers Name Role Phone Piedad Merritt MD Primary Care Physician Encounter [facility] Date(s): 03/06/22 - 03/13/22 [facility] [address] [place], [place] [address] Attending Physician: Bartolo Hernandez MD Referring Physician: Piedad Merritt MD Allergies, Adverse Reactions, [...] Not Given Patient Refuses 1Result Comment: [08/21/2017] [id number] Medications Docusate Sodium Capsule 100 mg, 1, capsule, By Mouth, 2 times a day, PRN, Refills 0, Maintenance, Constipation, 09/21/21 12:15:00 EST, Partial fill upon patient request if the prescription is for a schedule II opioid drug. Start Date: 09/21/21 Status: Ordereddoxycycline hyclate 100 mg oral tablet 1 tablet = 100 mg, By Mouth, 2 times a day, for 7 days, # 14 tablet, 0 Refills, Acute 03/14/22 17:39:00 EDT, 03/07/22 17:39:00 EDT, Tablet, [facility] #[id number], Partial fill upon patient request if the prescription is for a schedule II opioid... Start Date: 03/07/22 Stop Date: 03/14/22 Status: Orderedescitalopram 10 mg oral tablet 1 tablet = 10 mg, By Mouth, Daily, # 30 tablet, 1 Refills, Maintenance, 01/29/22 16:08:00 EDT, Tablet, [facility] #[id number], Partial fill upon patient request if the prescription is for a schedule II opioid drug., 157, cm, 09/21/21 9:23:00 EST,... Start Date: 01/29/22 Stop Date: 03/30/22 Status: [...] 12/24/22 7:07:00 EDT, 12/23/21 7:06:00 EDT, Tablet, [facility] #[id number], Partial fill upon patient request if the [...] recent to oldest [Reference Range]: 1 Height 157 cm (03/06/22 2:27 PM) Oxygen Saturation [94-100 %] 99 % (03/06/22 2:27 PM) Pulse Rate [55-90 bpm] 78 bpm (03/06/22 2:27 PM) Blood Pressure [90-138/55-84 mm Hg] 124/75 mm Hg (03/06/22 2:27 PM) Temperature [96.8-100.4 DegF] 98 DegF (03/06/22 2:27 PM) Mode of Delivery (Oxygen) Room air (03/06/22 2:27 PM) Blood pressure sites Arm, right (03/06/22 2:27 PM) Temperature Route Temporal (03/06/22 2:27 PM) Social History Social History Type Response Smoking Status Never (less than 100 in life time) entered on: 04/10/21 Sex
--- OUTSIDE RECORDS SUMMARY | 2022-10-30 20:02 | XMS_ITS | Continuity of Care Document ---
:2001 Author Organization [facility] Address [address] [place] [address]- Care Team Providers Name Role Phone Piedad Merritt MD Primary Care Physician [facility] Date[facility]s): 12/18/21 - 01/17/22 [facility] [address] [place], [place] [address] Attending Physician: Ezekiel Aguilar Admitting Physician: Ezekiel Aguilar Referring Physician: AdmtrEzekiel Allergies, Adverse Reactions, Alerts No Known Allergies [...] Not Given Patient Refuses 1Result Comment: [08/21/2017] [id number] Medications Docusate Sodium Capsule 100 mg, 1, capsule, By Mouth, 2 times a day, PRN, Refills 0, Maintenance, Constipation, 09/21/21 12:15:00 EST, Partial fill upon patient request if the prescription is for a schedule II opioid drug. Start Date: 09/21/21 Status: Orderedescitalopram 10 mg oral tablet 1 tablet = 10 mg, By Mouth, Daily, [facility] this month, # 30 tablet, 0 Refills, Maintenance, 12/30/21 12:30:00 EDT, Tablet, [facility] #[id number], Partial fill upon patient request if the prescription is for a schedule II opioid drug.... Start Date: 12/30/21 Status: Orderedibuprofen 800 mg oral tablet 800 [...] 12/24/22 7:07:00 EDT, 12/23/21 7:06:00 EDT, Tablet, [facility] #[id number], Partial fill upon patient request if the [...]
--- OUTSIDE RECORDS SUMMARY | 2022-10-30 20:02 | XMS_ITS | Continuity of Care Document ---
:2001 Author Organization [facility] Address [address] [place] [address]- Care Team Providers Name Role Phone Hayder MCKEON, Janet Primary Care Physician [facility] Date(s): 05/23/20 - 06/22/20 [facility] [address] [place] [address]- [facility] Allergies, Adverse Reactions, Alerts Substance Reaction Severity [...] pediatric vaccine 01 Given 1Result Comment: [08/21/2017] [id number] Medications Cannabis (Schedule I Substance) 0 Refills, Maintenance, 04/17/20 18:42:00 EDT Start Date: 04/17/20 Status: OrderedDiflucan 150 mg oral tablet 1 tablet = 150 mg, By Mouth, Once, May repeat in 3 days if continued symptoms, # 2 tablet, 0 Refills, Soft Stop, 06/09/20 16:44:00 EDT, Tablet, [facility] #[id number], 155, cm, 05/29/20 16:09:00 EDT, Height, 47.2, [...]
--- OUTSIDE RECORDS SUMMARY | 2022-10-30 20:02 | XMS_ITS | Continuity of Care Document ---
:2001 Author Organization [facility] Address [address] [place] [address]- Care Team Providers Name Role Phone Piedad Merritt MD Primary Care Physician [facility]s): 12/09/21 - 01/17/22 [facility] [address] [place], [place] [address] Attending Physician: Piedad Merritt MD [...] Not Given Patient Refuses 1Result Comment: [08/21/2017] [id number] Medications Docusate Sodium Capsule 100 mg, 1, capsule, By Mouth, 2 times a day, PRN, Refills 0, Maintenance, Constipation, 09/21/21 12:15:00 EST, Partial fill upon patient request if the prescription is for a schedule II opioid drug. Start Date: 09/21/21 Status: Orderedescitalopram 10 mg oral tablet 1 tablet = 10 mg, By Mouth, Daily, [facility] this month, # 30 tablet, 0 Refills, Maintenance, 12/30/21 12:30:00 EDT, Tablet, [facility] #[id number], Partial fill upon patient request if the [...] 12/24/22 7:07:00 EDT, 12/23/21 7:06:00 EDT, Tablet, [facility] #[id number], Partial fill upon patient request if the [...]
--- OUTSIDE RECORDS SUMMARY | 2022-10-30 20:03 | XMS_ITS | Continuity of Care Document ---
:2001 Author Organization [facility] Address [address] [place] [address]- Care Team Providers Name Role Phone Shaina MCKEON, Piedad Gabriel Primary Care Physician [facility]s): 08/04/22 - 09/03/22 [facility] [address] [place] [address]- Allergies, Adverse Reactions, Alerts No Known Allergies [...] Not Given Patient Refuses 1Result Comment: [08/21/2017] [id number] Medications Tylenol Extra Strength 500 mg oral [...] Care Team PersonnelName: Piedad Merritt MD Position: [facility] Primary Care Physician Member Role: PCP Address: Address: [address] [place] [address] Adult [place] [address]- Care Team Related PersonsName: MALCOLM KRISHNAMURTHY Address: home [address] [place] [address] Name: ANAM QUIROZ Address: [address] [address] Name: AYAKA QUIROZ Name: JERI CAIN Address: [address] Address: [address]
--- OUTSIDE RECORDS SUMMARY | 2022-10-30 20:03 | XMS_ITS | Continuity of Care Document ---
:2001 Author Organization [facility] Address [address] [place] [address]- Care Team Providers Name Role Phone Janet Singletary MD Primary Care Physician Encounter [facility] Date(s): 01/12/20 - 01/19/20 [facility] [address] [place] [address]- [facility] Encounter Diagnosis Vaginitis (Discharge Diagnosis) - 01/12/20 Attending Physician: Tiny Lentz MD Allergies, Adverse Reactions, Alerts Substance Reaction [...] pediatric vaccine 01 Given 1Result Comment: [08/21/2017] [id number] Medications Diflucan 150 mg oral tablet 1 tablet = 150 mg, By Mouth, Once, # 1 tablet, 0 Refills, Soft Stop, 01/12/20 14:26:00 EDT, Tablet, [facility] #[id number], 161, cm, 12/15/19 13:09:00 EST, Height, 51.3, kg, 11/29/19 17:04:00 EST,Dry Weight Start Date: 01/12/20 Status: OrderedFlonase 50 mcg/inh nasal spray 1 sprays, Nares, Both, 2 times a day, # 16 Gm, 0 Refills, Maintenance, 12/15/19 13:34:00 EST, [place] #[id number], 1 sprays Nares, Both 2 times a [...] 12/30/19 14:03:00 EDT, Route to Pharmacy Electronically, [facility] #[id number], 161, cm, 12/15/19 13:09:00 EST, Height, 51.3, [...] 0 Refills, Maintenance, 01/10/20 14:46:00 EDT, Tablet, [facility] #[id number], 161, cm, 12/15/19 13:09:00 EST, Height, 51.3, [...] Status Informant Depression, major, recurrent, Active moderate(Confirmed) Diagnosis Diagnosis Type Effective Dates Health Status Clinical Serv ice Informant Vaginitis Discharge 01/12/20 Diagnosis Social History Social History Type Response Smoking Status Never smoker; Tobacco user i n household: Yes; Other: mom somkes outside; entered on: 04/10/17 Sex
--- OUTSIDE RECORDS SUMMARY | 2022-10-30 20:03 | XMS_ITS | Continuity of Care Document ---
:2001 Author Organization [facility] Address [address] [place] [address]- Care Team Providers Name Role Phone Piedad Merritt MD Primary Care Physician [facility]s): 02/03/22 - 05/08/22 [facility] [address] [place], [place] [address] Attending Physician: Piedad Merritt MD Allergies, [...] Not Given Patient Refuses 1Result Comment: [08/21/2017] [id number] Medications Docusate Sodium Capsule 100 mg, 1, [...] 1 Refills, Maintenance, 01/29/22 16:08:00 EDT, Tablet, [facility] #[id number], Partial fill upon patient request ifthe prescription [...] 12/24/22 7:07:00 EDT, 12/23/21 7:06:00 EDT, Tablet, [facility] #[id number], Partial fill upon patient request if the [...] Refills, Soft Stop, 03/28/22 18:33:00 EDT, Tablet, [facility] #[id number], Partial fill upon patient request if the [...]
--- OUTSIDE RECORDS SUMMARY | 2022-10-30 20:03 | XMS_ITS | Continuity of Care Document ---
:2001 Author Organization [facility] Address [address] [place] [address]- Care Team Providers Name Role Phone Shaina MCKEON, Piedad Gabriel Primary Care Physician [facility]s): 08/10/22 - 09/09/22 [facility] [address] [place], [place] [address] Allergies, Adverse Reactions, Alerts No Known [...] Not Given Patient Refuses 1Result Comment: [08/21/2017] [id number] Medications Tylenol Extra Strength 500 mg oral [...] Care Team PersonnelName: Piedad Merritt MD Position: [facility] Primary Care Physician Member Role: PCP Address: Address: [address] [place] [address] Adult [place] [address]- Care Team Related PersonsName: MALCOLM KRISHNAMURTHY Address: [address] [place] [address] Name: ANAM QUIROZ Address: [address] [address] Name: AYAKA QUIROZ Name: JERI CAIN Address: [address] Address: [address] [address]
--- OUTSIDE RECORDS SUMMARY | 2022-10-30 20:03 | XMS_ITS | Continuity of Care Document ---
:2001 Author Organization [facility] Address [address] [place] [address]- Care Team Providers Name Role Phone Piedad Merritt MD Primary Care Physician Encounter [facility] Date(s): 12/23/21 - 12/23/[address] [address]- Encounter Diagnosis Abdominal pain (Final) - 12/23/21 Nausea and vomiting (Final) - 12/23/21 Diarrhea (Final) - 12/23/21 Discharge Disposition: A-D/C Home Attending Physician: Edgar Salazar MD Admitting Physician: Edgar Salazar MD Referring Physician: Not on Staff, Referring MD Allergies, Adverse Reactions, Alerts No Known [...] Not Given Patient Refuses 1Result Comment: [08/21/2017] [id number] Medications cephalexin monohydrate 500 mg oral capsule 1 capsule = 500 mg, By Mouth, Every 12 hours, for 3 days, # 5 capsule, 0 Refills, Acute 12/26/21 7:07:00 EDT, 12/23/21 7:07:00 EDT, Capsule, [facility] #[id number], Partial fill upon patient request if the prescription is for a schedule II opioid... Start Date: 12/23/21 Stop Date: 12/26/21 Status: OrderedDocusate Sodium Capsule 100 mg, 1, capsule, By [...] 12/24/22 7:07:00 EDT, 12/23/21 7:06:00 EDT, Tablet, [facility] #[id number], Partial fill upon patient request if the [...] to oldest 1 2 3 [Reference Range]: Oxygen Saturation [94-100 %] 100 % 100 % 99 % (12/23/21 7:31 AM) (12/23/21 5:03 AM) (12/23/21 12: 39 AM) Pulse Rate [55-90 bpm] 95 bpm 102 bpm 103 bpm *H* *H* *H* (12/23/21 7:31 AM) (12/23/21 5:03 AM) (12/23/21 12: 39 AM) Blood Pressure [90-138/55-84 108/63 mm Hg 103/64 mm Hg 111 /78 mm Hg mm Hg] (12/23/21 7:31 AM) (12/23/21 5:03 AM) (12/23/21 12: 39 AM) Respiratory Rate [16-30 18 br/min 18 br/min 17 br/mi n br/min] (12/23/21 7:31 AM) (12/23/21 5:03 AM) (12/23/21 12: 39 AM) Temperature [96.8-100.4 DegF] 99.7 DegF 98.2 DegF 98 .3 DegF (12/23/21 7:31 AM) (12/23/21 5:03 AM) (12/23/21 12: 39 AM) Mode of Delivery (Oxygen) Room air Room air Room a ir (12/23/21 7:31 AM) (12/23/21 5:03 AM) (12/23/21 12: 39 AM) Blood pressure sites Arm, right Arm, right Arm, right (12/23/21 7:31 AM) (12/23/21 5:03 AM) (12/23/21 12: 39 AM) Temperature Route Oral Oral Oral (12/23/21 7:31 AM) (12/23/21 5:03 AM) (12/23/21 12: 39 AM) Social History Social History Type Response Smoking Status Never (less than 100 in life time) entered on: 04/10/21 Sex
--- OUTSIDE RECORDS SUMMARY | 2022-10-30 20:03 | XMS_ITS | Continuity of Care Document ---
:2001 Author Organization [facility] Address [address] [place] [address]- Care Team Providers Name Role Phone Janet Singletary MD Primary Care Physician [facility] Date[facility]s): 03/27/20 - 05/30/20 [facility] [address] [place] [address]- [facility] Attending Physician: Janet Singletary MD [...] pediatric vaccine 01 Given 1Result Comment: [08/21/2017] [id number] Medications Cannabis (Schedule I Substance) 0 Refills, [...]
--- OUTSIDE RECORDS SUMMARY | 2022-10-30 20:03 | XMS_ITS | Continuity of Care Document ---
:2001 Author Organization [facility] Address [address] [place] [address]- Care Team Providers Name Role Phone Janet Singletary MD Primary Care Physician [facility] Date[facility]): 01/10/20 - 02/09/20 [facility] [address] [place] [address]- [facility] Attending Physician: Janet Singletary MD Allergies, [...] pediatric vaccine 01 Given 1Result Comment: [08/21/2017] [id number] Medications Diflucan 150 mg oral tablet 1 tablet = 150 mg, By Mouth, Once, # 1 tablet, 0 Refills, Soft Stop, 01/12/20 14:26:00 EDT, Tablet, [facility] #[id number], 161, cm, 12/15/19 13:09:00 EST, Height, 51.3, kg, 11/29/19 17:04:00 EST,Dry Weight Start Date: 01/12/20 Status: OrderedFlonase 50 mcg/inh nasal spray 1 sprays, Nares, Both, 2 times a day, # 16 Gm, 0 Refills, Maintenance, 12/15/19 13:34:00 EST, [place] #[id number], 1 sprays Nares, Both 2 times a [...] 12/30/19 14:03:00 EDT, Route to Pharmacy Electronically, [facility] #[id number], 161, cm, 12/15/19 13:09:00 EST, Height, 51.3, [...] 0 Refills, Maintenance, 01/10/20 14:46:00 EDT, Tablet, [facility] #[id number], 161, cm, 12/15/19 13:09:00 EST, Height, 51.3, [...]
--- OUTSIDE RECORDS SUMMARY | 2022-10-30 20:03 | XMS_ITS | Continuity of Care Document ---
:2001 Author Organization [facility] Address [address] [place] [address]- Care Team Providers Name Role Phone Janet Singletary MD Primary Care Physician [facility] Date[facility]s): 09/18/20 - 09/25/20 [facility] [address] [place], [place] [address] Attending Physician: Janet Singletary MD Allergies, [...] pediatric vaccine 01 Given 1Result Comment: [08/21/2017] [id number] Medications Cannabis (Schedule I Substance) 0 Refills, Maintenance, 04/17/20 18:42:00 EDT Start Date: 04/17/20 Status: OrderedNuvaRing 0.015 mg-0.120 mg vaginal ring 1 each, Vaginally, Rx by DRAMATIC READER, 0 Refills, Maintenance, 09/18/20 14:19:00 EST, Partial [...]
--- OUTSIDE RECORDS SUMMARY | 2022-10-30 20:03 | XMS_ITS | Continuity of Care Document ---
:2001 Author Organization [facility] Address [address] [place] [address]- Care Team Providers Name Role Phone Janet Singletary MD Primary Care Physician [facility] Date(s): 11/29/19 - 11/29/[address] [address]- [facility] Attending Physician: Kimo Gregorio MD Allergies, Adverse Reactions, Alerts Substance Reaction [...] pediatric vaccine 01 Given 1Result Comment: [08/21/2017] [id number] Medications clotrimazole 1% topical cream 1 application, Topically, 2 times a day, for 10 days, # 45 Gm, 0 Refills, Acute 12/09/19 17:37:00 EST, 11/29/19 17:37:00 EST, Cream, [facility] #[id number], 1 application Topically 2 times a day,x10 days, 161, cm, 11/29/19 17:04:00 EST, Height, 5... Start Date: 11/29/19 Stop Date: 12/09/19 Status: OrderedDiflucan 150 mg oral tablet See Instructions, 1 tablet PO QD on day 1, 3 and 7., # 3 tablet, 0 Refills, Soft Stop, 11/29/19 17:36:00 EST, Tablet, [facility] #[id number], 161, cm, 11/29/19 17:04:00 EST, Height, 51.3, [...]
--- OUTSIDE RECORDS SUMMARY | 2022-10-30 20:03 | XMS_ITS | Continuity of Care Document ---
:2001 Author Organization [facility] Address [address] [place] [address]- Care Team Providers Name Role Phone Piedad Merritt MD Primary Care Physician [place] [facility] [facility] [place] 09/16/21 - 09/16/[address] [address] Discharge Disposition: A-D/C Home Attending Physician: Angela Rojas MD Admitting Physician: Angela Rojas MD Referring Physician: Angela Rojas MD Allergies, Adverse Reactions, Alerts Substance Reaction [...] Given diphtheria/tetanus/pertussis, acel(DTaP) 06/23/07 Given diphtheria/tetanus/pertussis, acel(DTaP) 2/21/03 Given diphtheria/tetanus/pertussis, acel(DTaP) 01 Given diphtheria/tetanus/pertussis, acel(DTaP) [...] pediatric vaccine 01 Given 1Result Comment: [08/21/2017] [id number] Medications ondansetron 4 mg oral tablet 1 tablet = 4 mg, By Mouth, Every 8 hours, PRN as needed for nausea/vomiting, # 9 tablet, 0 Refills, Maintenance, 01/08/21 18:11:00 EDT, Tablet, [facility] #[id number], Partial fill upon patient request if the [...]
--- OUTSIDE RECORDS SUMMARY | 2022-10-30 20:03 | XMS_ITS | Continuity of Care Document ---
:2001 Author Organization [facility] Address [address] [place] [address]- Care Team Providers Name Role Phone Janet Singletary MD Primary Care Physician [facility] Date[facility]s): 11/06/20 - 12/06/20 [facility] [address] [place], [place] [address] Allergies, Adverse Reactions, Alerts Substance Reaction Severity [...] pediatric vaccine 01 Given 1Result Comment: [08/21/2017] [id number] Medications Cannabis (Schedule I Substance) 0 Refills, Maintenance, 04/17/20 18:42:00 EDT Start Date: 04/17/20 Status: OrderedNuvaRing 0.015 mg-0.120 mg vaginal ring 1 each, Vaginally, Rx by MESSENGER FLOORPERSON, 0 Refills, Maintenance, 09/18/20 14:19:00 EST, Partial [...]
--- OUTSIDE RECORDS SUMMARY | 2022-10-30 20:03 | XMS_ITS | Continuity of Care Document ---
:2001 Author Organization [facility] Address [address] [place] [address]- Care Team Providers Name Role Phone Piedad Merritt MD Primary Care Physician [facility] Date[facility]s): 08/06/22 - 08/13/22 [facility] [address] [place] [address]- Attending Physician: Piedad Merritt MD Allergies, Adverse [...] Not Given Patient Refuses 1Result Comment: [08/21/2017] [id number] Medications Tylenol Extra Strength 500 mg oral [...] infection Depression, major, Confirmed Active recurrent, moderate Vital Signs Most recent to oldest [Reference Range]: 1 Height 157 cm (08/06/22 2:33 PM) Weight 47.8 kg (08/06/22 2:33 PM) Oxygen Saturation [94-100 %] 99 % (08/06/22 2:33 PM) Pulse Rate [55-90 bpm] 94 bpm *H* (08/06/22 2:33 PM) Body Mass Index [18.5-24.99 kg/m2] 19.39 kg/m2 (08/06/22 2:33 PM) Blood Pressure [90-138/55-84 mm Hg] 88/50 mm Hg *L* (08/06/22 2:33 PM) Blood pressure sites Arm, left (08/06/22 2:33 PM) Weight Obtained Via Standing scale (08/06/22 2:33 PM) Social History Social History Type Response Smoking Status Never (less than 100 in life time) entered on: 04/10/21 Sex Patient Care team information PersonnelName: Shaina MCKEON, Piedad Gabriel Address: Address: [address] [place] [address] Adult & Pediatric [place], [place] [address]
--- OUTSIDE RECORDS SUMMARY | 2022-10-30 20:03 | XMS_ITS | Continuity of Care Document ---
:[address] [facility] Address [address] [place] [address]- Care Team Providers Name Role Phone Piedad Merritt MD Primary Care Physician [facility] Date(s): 08/06/22 - 10/08/22 [facility] [address] [place] [address]- Attending Physician: Piedad Merritt MD Allergies, Adverse [...] Not Given Patient Refuses 1Result Comment: [08/21/2017] [id number] Medications Tylenol Extra Strength 500 mg oral [...] Care Team PersonnelName: Piedad Merritt MD Position: [facility] Primary Care Physician Member Role: PCP Address: Address: [facility] [place] [address]- Care Team Related PersonsName: MALCOLM KRISHNAMURTHY Address: home [address] [place] [address] Name: ANAM QUIROZ Address: home [address] [place] [address] Name: AYAKA QUIROZ Name: JERI CAIN Address: [address] Address: [address] [address]
--- OUTSIDE RECORDS SUMMARY | 2022-10-30 20:03 | XMS_ITS | Continuity of Care Document ---
:[address] [facility] Address [address] [place] [address]- Care Team Providers Name Role Phone Janet Singletary MD Primary Care Physician [facility] Date(s): 04/11/21 - 05/11/21 [facility] [address] [place], [place] [address] Allergies, Adverse Reactions, Alerts Substance Reaction [...] pediatric vaccine 01 Given 1Result Comment: [08/21/2017] [id number] Medications ondansetron 4 mg oral tablet 1 tablet = 4 mg, By Mouth, Every 8 hours, PRN as needed for nausea/vomiting, # 9 tablet, 0 Refills, Maintenance, 01/08/21 18:11:00 EDT, Tablet, [facility] #[id number], Partial fill upon patient request if the [...]
--- OUTSIDE RECORDS SUMMARY | 2022-10-30 20:03 | XMS_ITS | Continuity of Care Document ---
:2001 Author Organization [facility] Address [address] [place] [address]- Care Team Providers Name Role Phone Shaina MCKEON, Piedad Gabriel Primary Care Physician [facility] Date(s): 08/17/22 - 09/16/22 [facility] [address] [place] [address]- Allergies, Adverse Reactions, Alerts No Known Allergies [...] Not Given Patient Refuses 1Result Comment: [08/21/2017] [id number] Medications Tylenol Extra Strength 500 mg oral [...] Care Team PersonnelName: Piedad Merritt MD Position: [facility] Primary Care Physician Member Role: PCP Address: Address: [address] [place] [address] Adult [place] [address]- Care Team Related PersonsName: MALCOLM KRISHNAMURTHY Address: home [address] [place] [address] Name: ANAM QUIROZ Address: [address] [address] Name: AYAKA QUIROZ Name: JERI CAIN Address: [address] Address: [address]
--- OUTSIDE RECORDS SUMMARY | 2022-10-30 20:03 | XMS_ITS | Continuity of Care Document ---
:[address] [facility] Address [address] [place] [address]- Care Team Providers Name Role Phone Janet Singletary MD Primary Care Physician [facility] Date(s): 01/11/21 - 01/18/21 [facility] [address] [place], [place] [address] Attending Physician: Janet Singletary MD Allergies, Adverse [...] pediatric vaccine 01 Given 1Result Comment: [08/21/2017] [id number] Medications Cannabis (Schedule I Substance) 0 Refills, Maintenance, 04/17/20 18:42:00 EDT Start Date: 04/17/20 Status: OrderedNuvaRing 0.015 mg-0.120 mg vaginal ring 1 each, Vaginally, Rx by VEST FINISHER, 0 Refills, Maintenance, 09/18/20 14:19:00 EST, Partial fill upon patient request if the prescription is for a schedule II opioid drug. Start Date: 09/18/20 Status: Orderedomeprazole 20 mg oral delayed release tablet 1 tablet = 20 mg, By Mouth, Daily, # 14 tablet, 0 Refills, Maintenance, 01/08/21 18:11:00 EDT, CR Tablet, [facility] #[id number], Partial fill upon patient request if the prescription is for a schedule II opioid drug., 155, cm, 01/08/21 17:24:00... Start Date: 01/08/21 Stop Date: 01/22/21 Status: Orderedondansetron 4 mg oral tablet 1 tablet = 4 mg, By Mouth, Every 8 hours, PRN as needed for nausea/vomiting, # 9 tablet, 0 Refills, Maintenance, 01/08/21 18:11:00 EDT, [facility] #[id number], Partial fill upon patient request if the prescription is for a schedule II opi... Start Date: 01/08/21 Stop Date: 01/11/21 Status: OrderedVitamin B12 0 Refills, Maintenance, 04/17/20 [...]
--- OUTSIDE RECORDS SUMMARY | 2022-10-30 20:03 | XMS_ITS | Continuity of Care Document ---
:2001 Author Organization [facility] Address [address] [place] [address]- Care Team Providers Name Role Phone Shaina MCKEON, Piedad Gabriel Primary Care Physician [facility] Date(s): 09/24/22 - 10/25/22 [facility] [address] [place] [address]- Attending Physician: Mandy Murphy DO Allergies, Adverse Reactions, Alerts No Known Allergies [...] Not Given Patient Refuses 1Result Comment: [08/21/2017] [id number] Medications Readi-Cat 2 oral suspension See Instructions, use as directed; 2 bottles of 450 ML, # 2 each, 0 Refills, Maintenance, 10/21/22 15:49:00 EST, [facility]/pharm[facility] #[id number], Partial fill upon patient request if the prescription is for a schedule II opioid drug., use as directed; 2 bottles of... Start Date: 10/21/22 Status: OrderedTylenol Extra Strength 500 mg oral [...] Patient Care team information Care Team PersonnelName: Shaina MCKEON, Piedad Gabriel Position: [facility] Primary Care Physician Member Role: PCP Address: Address: [facility] [place] [address]- Care Team Related PersonsName: MALCOLM KRISHNAMURTHY Address: [address] [place] [address] Name: ANAM QUIROZ Address: home [address] [address] Name: ANAM QUIROZ Address: [address] [address] Name: AYAKA QUIROZ Name: JERI CAIN Address: [address] Address: home [address] [address] [place]
--- OUTSIDE RECORDS SUMMARY | 2022-10-30 20:03 | XMS_ITS | Continuity of Care Document ---
:2001 Author Organization [facility] Address [address] [place] [address]- Care Team Providers Name Role Phone Piedad Merritt MD Primary Care Physician [facility] Date(s): 04/11/22 - 05/11/22 [facility] [address] [place], [place] [address] Attending Physician: Piedad Merritt MD Allergies, [...] Not Given Patient Refuses 1Result Comment: [08/21/2017] [id number] Medications Docusate Sodium Capsule 100 mg, 1, [...] 1 Refills, Maintenance, 01/29/22 16:08:00 EDT, Tablet, [facility] #[id number], Partial fill upon patient request ifthe prescription [...] 12/24/22 7:07:00 EDT, 12/23/21 7:06:00 EDT, Tablet, [facility] #[id number], Partial fill upon patient request if the [...] Refills, Soft Stop, 03/28/22 18:33:00 EDT, Tablet, [facility] #[id number], Partial fill upon patient request if the [...]
--- OUTSIDE RECORDS SUMMARY | 2022-10-30 20:03 | XMS_ITS | Continuity of Care Document ---
:2001 Author Organization [facility] Address [address] [place] [address]- Care Team Providers Name Role Phone Janet Singletary MD Primary Care Physician Encounter [facility] [place] Date(s): 02/16/21 - 02/16/[address] [address] Discharge Disposition: A-D/C Home Attending Physician: Arlen Moore MD Admitting Physician: Arlen Moore MD Referring Physician: Arlen Moore MD Allergies, Adverse Reactions, Alerts Substance Reaction [...] pediatric vaccine 01 Given 1Result Comment: [08/21/2017] [id number] Medications ondansetron 4 mg oral tablet 1 tablet = 4 mg, By Mouth, Every 8 hours, PRN as needed for nausea/vomiting, # 9 tablet, 0 Refills, Maintenance, 01/08/21 18:11:00 EDT, Tablet, [facility] #[id number], Partial fill upon patient request if the [...] Dysmenorrhea(Confirmed) Active Depression, major, recurrent, Active moderate(Confirmed) Procedures Procedure Date Related Diagnosis Body Site Status Tonsils and adenoids Complet ed Citra tooth Completed Vital Signs Most recent to oldest [Reference Range]: 1 Height 155 cm (02/16/21 4:25 PM) Weight 45.3 kg (02/16/21 3:58 PM) Oxygen Saturation [94-100 %] 100 % (02/16/21 3:58 PM) Pulse Rate [55-90 bpm] 90 bpm (02/16/21 3:58 PM) Blood Pressure [90-138/55-84 mm Hg] 126/80 mm Hg (02/16/21 3:58 PM) Respiratory Rate [16-30 br/min] 18 br/min (02/16/21 3:58 PM) Temperature [96.8-100.4 DegF] 98.5 DegF (02/16/21 3:58 PM) Mode of Delivery (Oxygen) Room air (02/16/21 3:58 PM) Blood pressure sites Arm, right 1 (02/16/21 3:58 PM) Temperature Route Oral (02/16/21 3:58 PM) Dry Weight 45.3 kg (02/16/21 3:58 PM) 1Result Comment: right upper arm measured 20cm Social History Social History Type Response Smoking Status Never (less than 100 in life time); Tobacco user in household: Yes; Other: Mom smokes outside.; entered on: 09/18/20 Sex
--- OUTSIDE RECORDS SUMMARY | 2022-10-30 20:03 | XMS_ITS | Continuity of Care Document ---
:2001 Author Organization [facility] Address [address] [place] [address]- Care Team Providers Name Role Phone Janet Singletary MD Primary Care Physician [facility] Date[facility]s): 04/23/20 - 05/23/20 [facility] [address] [place] [address]- [facility] Attending Physician: Ezekiel Aguilar Admitting Physician: [...] pediatric vaccine 01 Given 1Result Comment: [08/21/2017] [id number] Medications Cannabis (Schedule I Substance) 0 Refills, [...]
--- OUTSIDE RECORDS SUMMARY | 2022-10-30 20:03 | XMS_ITS | Continuity of Care Document ---
:2001 Author Organization [facility] Address [address] [place] [address]- Care Team Providers Name Role Phone Piedad Merritt MD Primary Care Physician Encounter [facility] [place] Date(s): 03/28/22 - 04/04/22 [facility] [address] [place] [address]- Attending Physician: Kelby Giordano DO Referring Physician: Piedad Merritt MD Allergies, Adverse [...] Not Given Patient Refuses 1Result Comment: [08/21/2017] [id number] Medications Docusate Sodium Capsule 100 mg, 1, [...] 1 Refills, Maintenance, 01/29/22 16:08:00 EDT, Tablet, [facility] #[id number], Partial fill upon patient request if the [...] 12/24/22 7:07:00 EDT, 12/23/21 7:06:00 EDT, Tablet, [facility] #[id number], Partial fill upon patient request if the [...] Refills, Soft Stop, 03/28/22 18:33:00 EDT, Tablet, [facility] #[id number], Partial fill upon patient request if the prescription is for a schedule II opioid drug., 157, cm, 03/28/22 17:02:00 EDT,... Start Date: 03/28/22 Status: Ordered Problem List Condition Effective Dates Status Health Status Informant Dysmenorrhea(Confirmed) Active History of chlamydia 04/2019 Active infection(Confirmed) Depression, major, recurrent, Active moderate(Confirmed) Vital Signs Most recent to oldest [Reference Range]: 1 Height 157 cm (03/28/22 5:02 PM) Oxygen Saturation [94-100 %] 99 % (03/28/22 5:02 PM) Pulse Rate [55-90 bpm] 62 bpm (03/28/22 5:02 PM) Blood Pressure [90-138/55-84 mm Hg] 105/70 mm Hg (03/28/22 5:02 PM) Respiratory Rate [16-30 br/min] 18 br/min (03/28/22 5:02 PM) Temperature [96.8-100.4 DegF] 97.6 DegF (03/28/22 5:02 PM) Mode of Delivery (Oxygen) Room air (03/28/22 5:02 PM) Blood pressure sites Arm, right (03/28/22 5:02 PM) Temperature Route Temporal (03/28/22 5:02 PM) Social History Social History Type Response Smoking Status Never (less than 100 in life time) entered on: 04/10/21 Sex
--- OUTSIDE RECORDS SUMMARY | 2022-10-30 20:03 | XMS_ITS | Continuity of Care Document ---
:2001 Author Organization [facility] Address [address] [place] [address]- Care Team Providers Name Role Phone Janet Singletary MD Primary Care Physician [facility] Date(s): 03/28/20 - 03/29/[address] [address]- [facility] Encounter Diagnosis Depression (Final) - 03/28/20 Discharge Disposition: Transfer to Psych Facility Attending Physician: Rashard [place] MD Admitting Physician: Rashard [place] MD Referring Physician: Not on Staff, Referring MD Allergies, Adverse Reactions, Alerts Substance Reaction [...] pediatric vaccine 01 Given 1Result Comment: [08/21/2017] [id number] Medications Diflucan 150 mg oral tablet 1 tablet = 150 mg, By Mouth, Once, # 1 tablet, 0 Refills, Soft Stop, 01/12/20 14:26:00 EDT, Tablet, [facility] #[id number], 161, cm, 12/15/19 13:09:00 EST, Height, 51.3, kg, 11/29/19 17:04:00 EST,Dry Weight Start Date: 01/12/20 Status: OrderedFlonase 50 mcg/inh nasal spray 1 sprays, Nares, Both, 2 times a day, # 16 Gm, 0 Refills, Maintenance, 12/15/19 13:34:00 EST, [place] #[id number], 1 sprays Nares, Both 2 times a [...] Refills 0, Tot. Refills 0, Soft Stop, 03/23/20 16:59:00 EDT, Route to Pharmacy Electronically, [facility] #[id number], 161, cm, 12/15/19 13:09:00 EST, Height, 51.3, kg, 11/29/19 17:04:00 EST, Dry Weight Start Date: 03/23/20 Status: OrderedPlan B One-Step 1.5 mg oral tablet 1.5 mg, 1, tablet, By Mouth, Once, # 1 tablet, Refills 0, Tot. Refills 0, Soft Stop, 12/30/19 14:03:00 EDT, Route to Pharmacy Electronically, [facility] #[id number], 161, cm, 12/15/19 13:09:00 EST, Height, 51.3, [...] 0 Refills, Maintenance, 01/10/20 14:46:00 EDT, Tablet, [facility] #[id number], 161, cm, 12/15/19 13:09:00 EST, Height, 51.3, [...] 3 [Reference Range]: Oxygen Saturation [94-100 %] 97 % 99 % 98 % (03/29/20 2:27 PM) (03/29/20 4:20 AM) (03/28/20 8:1 3 PM) Pulse Rate [55-90 bpm] 114 bpm 114 bpm 119 bpm *H* *H* *H* (03/29/20 2:27 PM) (03/29/20 4:20 AM) (03/28/20 8:1 3 PM) Blood Pressure [71-110/30-71 mm 116/64 mm Hg 97/63 mm Hg 120/77 mm Hg Hg] *H* (03/29/20 4:20 AM) *H* (03/29/20 2:27 PM) (03/28/20 8:13 PM) Respiratory Rate [16-30 br/min] 18 br/min 16 br/min 20 br/min (03/29/20 2:27 PM) (03/29/20 4:20 AM) (03/28/20 8:1 3 PM) Temperature [96.8-100.4 DegF] 98 DegF 98.3 DegF 98 .5 DegF (03/29/20 2:27 PM) (03/29/20 4:20 AM) (03/28/20 8:1 3 PM) Mode of Delivery (Oxygen) Room air Room air Room a ir (03/29/20 2:27 PM) (03/29/20 4:20 AM) (03/28/20 8:1 3 PM) Blood pressure sites Arm, right Arm, right Arm, right (03/29/20 2:27 PM) (03/29/20 4:20 AM) (03/28/20 8:1 3 PM) Temperature Route Oral Oral Oral (03/29/20 2:27 PM) (03/29/20 4:20 AM) (03/28/20 8:1 3 PM) Social History Social History Type Response Smoking Status Never smoker; Tobacco user i n household: Yes; Other: mom somkes outside; entered on: 04/10/17 Sex
--- OUTSIDE RECORDS SUMMARY | 2022-10-30 20:03 | XMS_ITS | Continuity of Care Document ---
:[address] [facility] Address [address] [place] [address]- Care Team Providers Name Role Phone Janet Singletary MD Primary Care Physician [facility]s): 04/17/20 - 04/24/20 [facility] [address] [place] [address]- [facility] Attending Physician: Janet Singletary MD Allergies, Adverse [...] pediatric vaccine 01 Given 1Result Comment: [08/21/2017] [id number] Medications Cannabis (Schedule I Substance) 0 Refills, Maintenance, 04/17/20 18:42:00 EDT Start Date: 04/17/20 Status: Orderedcephalexin monohydrate 500 mg oral capsule 1 capsule = 500 mg, By Mouth, 2 times a day, for 7 days, # 14 capsule, 0 Refills, Acute 04/30/20 19:05:00 EDT, 04/23/20 19:05:00 EDT, [facility] #[id number], 155, cm, 04/23/20 18:26:00 EDT, Height, 45.8, kg, 04/23/20 18:42:00 EDT, Dry Weight Start Date: 04/23/20 Stop Date: 04/30/20 Status: Orderedmelatonin 3 mg oral tablet 2 tablet = 6 mg, By Mouth, Daily at bedtime, PRN Sleep, # 60 tablet, 0 Refills, Acute 05/12/20 12:00:00 EDT, 04/03/20 9:30:00 EDT, Tablet, [facility] #[id number], 155, cm, 04/02/20 20:55:00 EDT, Height, 45, [...]
--- OUTSIDE RECORDS SUMMARY | 2022-10-30 20:03 | XMS_ITS | Continuity of Care Document ---
:2001 Author Organization [facility] Address [address] [place] [address]- Care Team Providers Name Role Phone Shaina MCKEON, Piedad Gabriel Primary Care Physician [facility] Date[facility]s): 04/15/22 - 05/15/22 [facility] [address] [place] [address]- Attending Physician: Ezekiel Aguilar Admitting Physician: Ezekiel Aguilar Referring Physician: AdmEzekiel rivas Allergies, Adverse Reactions, Alerts No Known Allergies [...] Not Given Patient Refuses 1Result Comment: [08/21/2017] [id number] Medications Docusate Sodium Capsule 100 mg, 1, [...] 1 Refills, Maintenance, 01/29/22 16:08:00 EDT, Tablet, [facility] #[id number], Partial fill upon patient request ifthe prescription [...] 12/24/22 7:07:00 EDT, 12/23/21 7:06:00 EDT, Tablet, [facility] #[id number], Partial fill upon patient request if the [...] Refills, Soft Stop, 03/28/22 18:33:00 EDT, Tablet, [facility] #[id number], Partial fill upon patient request if the [...]
--- OUTSIDE RECORDS SUMMARY | 2022-10-30 20:03 | XMS_ITS | Continuity of Care Document ---
:[address] [facility] Address [address] [place] [address]- Care Team Providers Name Role Phone Piedad Merritt MD Primary Care Physician [facility]s): 08[facility]/22 - 09/07/22 [facility] [address] [place], [place] [address] Attending Physician: Piedad Merritt MD Allergies, Adverse [...] Not Given Patient Refuses 1Result Comment: [08/21/2017] [id number] Medications Tylenol Extra Strength 500 mg oral [...] Care Team PersonnelName: Piedad Merritt MD Position: [facility] Primary Care Physician Member Role: PCP Address: Address: [address] [place] [address] Adult [place] [address]- Care Team Related PersonsName: RAGHU MALCOLM Address: home [address] [place] [address] Name: ANAM QUIROZ Address: [address] [address] Name: AYAKA QUIROZ Name: JERI CAIN Address: [address] Address: [address] [address]
--- OUTSIDE RECORDS SUMMARY | 2022-10-30 20:04 | XMS_ITS | Continuity of Care Document ---
:2001 Author Organization [facility] Address [address] [place] [address]- Care Team Providers Name Role Phone Janet Singletary MD Primary Care Physician [facility] Date[facility]s): 01/21/21 - 02/20/21 [facility] [address] [place], [place] [address] Attending Physician: Ezekiel Aguilar Admitting Physician: Ezekiel [...] pediatric vaccine 01 Given 1Result Comment: [08/21/2017] [id number] Medications ondansetron 4 mg oral tablet 1 tablet = 4 mg, By Mouth, Every 8 hours, PRN as needed for nausea/vomiting, # 9 tablet, 0 Refills, Maintenance, 01/08/21 18:11:00 EDT, Tablet, [facility] #[id number], Partial fill upon patient request if the [...]
--- OUTSIDE RECORDS SUMMARY | 2022-10-30 20:04 | XMS_ITS | Continuity of Care Document ---
:2001 Author Organization [facility] Address [address] [place] [address]- Care Team Providers Name Role Phone Shaina MCKEON, Piedad Gabriel Primary Care Physician [facility] Date(s): 05/14/22 - 06/13/22 [facility] [address] [place], [place] [address] Allergies, Adverse Reactions, Alerts No Known Allergies [...] Not Given Patient Refuses 1Result Comment: [08/21/2017] [id number] Medications Docusate Sodium Capsule 100 mg, 1, [...] 2 Refills, Maintenance, 05/16/22 17:10:00 EDT, Tablet, [facility]/pharmacy #[id number], Partial fill upon patient request if [...] 12/24/22 7:07:00 EDT, 12/23/21 7:06:00 EDT, Tablet, [facility] #[id number], Partial fill upon patient request if the [...] Refills, Soft Stop, 03/28/22 18:33:00 EDT, Tablet, [facility] #[id number], Partial fill upon patient request if the [...] Team PersonnelName: Shaina MCKEON, Piedad Gabriel Address: [address] [place] [address] Adult & Pediatric [address]
--- OUTSIDE RECORDS SUMMARY | 2022-10-30 20:04 | XMS_ITS | Continuity of Care Document ---
:2001 Author Organization [facility] Address [address] [place] [address]- Care Team Providers Name Role Phone Janet Singletary MD Primary Care Physician [facility] Date(s): 11/22/19 - 12/02/19 [facility] [address] [place] [address]- [facility] Attending Physician: Ezekiel Aguilar Admitting Physician: [...] pediatric vaccine 01 Given 1Result Comment: [08/21/2017] [id number] Medications clotrimazole 1% topical cream 1 application, Topically, 2 times a day, for 10 days, # 45 Gm, 0 Refills, Acute 12/09/19 17:37:00 EST, 11/29/19 17:37:00 EST, Cream, [facility] #[id number], 1 application Topically 2 times a day,x10 days, 161, cm, 11/29/19 17:04:00 EST, Height, 5... Start Date: 11/29/19 Stop Date: 12/09/19 Status: OrderedDiflucan 150 mg oral tablet See Instructions, 1 tablet PO QD on day 1, 3 and 7., # 3 tablet, 0 Refills, Soft Stop, 11/29/19 17:36:00 EST, Tablet, [facility] #[id number], 161, cm, 11/29/19 17:04:00 EST, Height, 51.3, [...]
--- OUTSIDE RECORDS SUMMARY | 2022-10-30 20:04 | XMS_ITS | Continuity of Care Document ---
:2001 Author Organization [facility] Address [address] [place] [address]- Care Team Providers Name Role Phone Shaina MCKEON, Piedad Gabriel Primary Care Physician [facility] Date[facility]s): 01/20/22 - 02/19/22 [facility] [address] [place], [place] [address] Allergies, Adverse Reactions, Alerts No Known Allergies [...] Not Given Patient Refuses 1Result Comment: [08/21/2017] [id number] Medications Docusate Sodium Capsule 100 mg, 1, [...] 1 Refills, Maintenance, 01/29/22 16:08:00 EDT, Tablet, [facility] #[id number], Partial fill upon patient request if the [...] 12/24/22 7:07:00 EDT, 12/23/21 7:06:00 EDT, Tablet, [facility] #[id number], Partial fill upon patient request if the [...]
--- OUTSIDE RECORDS SUMMARY | 2022-10-30 20:04 | XMS_ITS | Continuity of Care Document ---
:2001 Author Organization [facility] Address [address] [place] [address]- Care Team Providers Name Role Phone Janet Singletary MD Primary Care Physician Encounter [facility] Date(s): 04/10/21 - 04/10/[address] [address] Discharge Disposition: A-D/C Home Attending Physician: Arlen [...] pediatric vaccine 01 Given 1Result Comment: [08/21/2017] [id number] Medications ondansetron 4 mg oral tablet 1 tablet = 4 mg, By Mouth, Every 8 hours, PRN as needed for nausea/vomiting, # 9 tablet, 0 Refills, Maintenance, 01/08/21 18:11:00 EDT, Tablet, [facility] #[id number], Partial fill upon patient request if the [...] Most recent to oldest [Reference Range]: 1 Weight 47.9 kg (04/10/21 5:03 PM) Oxygen Saturation [94-100 %] 97 % (04/10/21 5:03 PM) Pulse Rate [55-90 bpm] 102 bpm *H* (04/10/21 5:03 PM) Blood Pressure [90-138/55-84 mm Hg] 102/69 mm Hg (04/10/21 5:03 PM) Temperature [96.8-100.4 DegF] 98.6 DegF (04/10/21 5:03 PM) Mode of Delivery (Oxygen) Room air (04/10/21 5:03 PM) Blood pressure sites Arm, right (04/10/21 5:03 PM) Temperature Route Oral (04/10/21 5:03 PM) Dry Weight 47.9 kg (04/10/21 5:03 PM) Weight Obtained Via Standing scale (04/10/21 5:03 PM) Dry Weight Obtained Via Standing scale (04/10/21 5:03 PM) Social History Social History Type Response Smoking Status Never (less than 100 in life time) entered on: 04/10/21 Sex
--- OUTSIDE RECORDS SUMMARY | 2022-10-30 20:04 | XMS_ITS | Continuity of Care Document ---
:2001 Author Organization [facility] Address [address] [place] [address]- Care Team Providers Name Role Phone Shaina MCKEON, Piedad Gabrile Primary Care Physician Encounter [facility] Date(s): 10/21/22 - 10/28/22 [facility] [address] [place] [address]- Encounter Diagnosis Weight loss, unintentional (Discharge Diagnosis) - 10/21/22 Loose stools (Discharge Diagnosis) - 10/21/22 Attending Physician: Tiny Lentz MD Referring Physician: Piedad Merritt MD Allergies, [...] Not Given Patient Refuses 1Result Comment: [08/21/2017] [id number] Medications Readi-Cat 2 oral suspension See Instructions, use as directed; 2 bottles of 450 ML, # 2 each, 0 Refills, Maintenance, 10/21/22 15:49:00 EST, [facility]/pharmacy #[id number], Partial fill upon patient request if the [...] Confirmation Course Effective Dates Status Health Stat Informant Dysmenorrhea Confirmed Active History of Confirmed 04/2019 Active chlamydia infection Depression, major, Confirmed Active recurrent, moderate Diagnosis Diagnosis Type Effective Dates Health Clinical Infor mant Status Service Weight loss, Discharge 10/21/22 unintentional Diagnosis Loose stools Discharge 10/21/22 Diagnosis Social History Social History Type Response Smoking Status Never (less than 100 in life time) entered on: 04/10/21 Sex Patient Care team information Care Team PersonnelName: Shaina MCKEON, Piedad Gabriel Position: [facility] Primary Care Physician Member Role: PCP Address: Address: [address] [place] [address] Adult & Pediatric [address] Care Team Related PersonsName: AMY KRISHNAMURTHYA Address: home [address] [place] [address] Name: ANAM QUIROZ Address: [address] [address] Name: ANAM QUIROZ Address: [address] [address] Name: AYAKA QUIROZ Name: JERI CAIN Address: [address] Address: [address] [address]
--- OUTSIDE RECORDS SUMMARY | 2022-10-30 20:04 | XMS_ITS | Continuity of Care Document ---
:[address] [facility] Address [address] [place] [address]- Care Team Providers Name Role Phone Janet Singletary MD Primary Care Physician [facility] Date[facility]s): 05/01/20 - 06/08/20 [facility] [address] [place] [address]- [facility] Attending Physician: Janet Singletary MD Allergies, [...] pediatric vaccine 01 Given 1Result Comment: [08/21/2017] [id number] Medications Cannabis (Schedule I Substance) 0 Refills, [...]
--- OUTSIDE RECORDS SUMMARY | 2022-10-30 20:04 | XMS_ITS | Continuity of Care Document ---
:2001 Author Organization [facility] Address [address] [place] [address]- Care Team Providers Name Role Phone Shaina MCKEON, Piedad Gabriel Primary Care Physician [facility] Date(s): 01/29/22 - 02/28/22 [facility] [address] [place], [place] [address] Allergies, Adverse Reactions, Alerts No [...] Not Given Patient Refuses 1Result Comment: [08/21/2017] [id number] Medications Docusate Sodium Capsule 100 mg, 1, [...] 1 Refills, Maintenance, 01/29/22 16:08:00 EDT, Tablet, [facility] #[id number], Partial fill upon patient request if the [...] 12/24/22 7:07:00 EDT, 12/23/21 7:06:00 EDT, Tablet, [facility] #[id number], Partial fill upon patient request if the [...]
--- OUTSIDE RECORDS SUMMARY | 2022-10-30 20:04 | XMS_ITS | Continuity of Care Document ---
:2001 Author Organization [facility] Address [address] [place] [address]- Care Team Providers Name Role Phone Shaina MCKEON, Piedad Gabriel Primary Care Physician [facility] Date(s): 09/03/22 - 10/03/22 [facility] [address] [place] [address]- Allergies, Adverse Reactions, Alerts No Known Allergies [...] Not Given Patient Refuses 1Result Comment: [08/21/2017] [id number] Medications Tylenol Extra Strength 500 mg oral [...] Care Team PersonnelName: Piedad Merritt MD Position: [facility] Primary Care Physician Member Role: PCP Address: Address: [address] [place] [address] Adult [place] [address]- Care Team Related PersonsName: MALCOLM KRISHNAMURTHY Address: home [address] [place] [address] Name: ANAM QUIROZ Address: [address] [address] Name: AYAKA QUIROZ Name: JERI CAIN Address: [address] Address: [address]
--- OUTSIDE RECORDS SUMMARY | 2022-10-30 20:04 | XMS_ITS | Continuity of Care Document ---
:2001 Author Organization [facility] Address [address] [place] [address]- Care Team Providers Name Role Phone Janet Singletary MD Primary Care Physician [facility] Date(s): 03/27/20 - 04/03/20 [facility] [address] [place] [address]- [facility] Attending Physician: Janet Singletary [...] pediatric vaccine 01 Given 1Result Comment: [08/21/2017] [id number] Medications Flonase 50 mcg/inh nasal spray 1 sprays, Nares, Both, 2 times a day, # 16 Gm, 0 Refills, Maintenance, 12/15/19 13:34:00 EST, [facility] #[id number], 1 sprays Nares, Both 2 times a day, 161, cm, 12/15/19 13:09:00 EST, Height, 51.3, kg, 11/29/19 17:04:00 EST, Dry Weight Start Date: 12/15/19 Status: OrderedLaMICtal 25 mg oral tablet 50 mg, 2, tablet, By Mouth, Daily at bedtime, # 60 tablet, Refills 0, Tot. Refills 0, Maintenance, 04/03/20 9:30:00 EDT, Route to Pharmacy Electronically, [facility] #[id number], 155, cm, 04/02/2020:55:00 EDT, Height, 45, kg, 03/29/20 15:50:00 E... Start Date: 04/03/20 Status: Orderedmelatonin 3 mg oral tablet 2 tablet = 6 mg, By Mouth, Daily at bedtime, PRN Sleep, # 60 tablet, 0 Refills, Acute 05/12/20 12:00:00 EDT, 04/03/20 9:30:00 EDT, Tablet, [facility] #[id number], 155, cm, 04/02/20 20:55:00 EDT, Height, 45, kg, 03/29/20 15:50:00 EDT, Dry Weight Start Date: 04/03/20 Stop Date: 05/12/20 Status: OrderedOrtho Tri-Cyclen Lo oral tablet 1 tablet, By Mouth, Daily, # 84 tablet, 3 Refills, Maintenance, 07/12/19 15:18:18 EDT, Tablet, 1 tablet By Mouth Daily Start Date: 07/12/19 Status: Ordered Problem List Condition Effective Dates Status Health Status Informant Depression, major, recurrent, Active moderate(Confirmed) Vital Signs Most recent to oldest [Reference Range]: 1 Height 161 cm (03/27/20 9:49 AM) Weight 47.8 kg (03/27/20 9:49 AM) Body Mass Index [18.5-24.99] 18.44 *L* (03/27/20 9:49 AM) Blood Pressure [71-110/30-71 mm Hg] 102/60 mm Hg (03/27/20 9:49 AM) Temperature [96.8-100.4 DegF] 98.6 DegF (03/27/20 9:49 AM) Blood pressure sites Arm, left (03/27/20 9:49 AM) Temperature Route Temporal (03/27/20 9:49 AM) Weight Obtained Via Standing scale (03/27/20 9:49 AM) Social History Social History Type Response Smoking Status Never smoker; Tobacco user i n household: Yes; Other: mom somkes outside; entered on: 04/10/17 Sex
--- OUTSIDE RECORDS SUMMARY | 2022-10-30 20:04 | XMS_ITS | Continuity of Care Document ---
:2001 Author Organization [facility] Address [address] [place] [address]- Care Team Providers Name Role Phone Shaina MCKEON, Piedad Gabriel Primary Care Physician [facility] Date[facility]s): 07/02/22 - 08/01/22 [facility] [address] [place], [place] [address] Allergies, Adverse Reactions, Alerts No [...] Not Given Patient Refuses 1Result Comment: [08/21/2017] [id number] Medications Docusate Sodium Capsule 100 mg, 1, [...] 2 Refills, Maintenance, 05/16/22 17:10:00 EDT, Tablet, [facility]/pharmacy #[id number], Partial fill upon patient request [...] 12/24/22 7:07:00 EDT, 12/23/21 7:06:00 EDT, Tablet, [facility] #[id number], Partial fill upon patient request if the [...] Refills, Soft Stop, 03/28/22 18:33:00 EDT, Tablet, [facility] #[id number], Partial fill upon patient request if the prescription is for a schedule II opioid drug., 157, cm, 03/28/22 17:02:00 EDT,... Start Date: 03/28/22 Status: Ordered Problem List Condition Confirmation Course Effective Dates Status Health Stat us Informant Dysmenorrhea Confirmed Active History of Confirmed 04/2019 Active chlamydia infection Depression, major, Confirmed Active recurrent, moderate Social History Social History Type Response Smoking Status Never (less than 100 in life time) entered on: 04/10/21 Sex Patient Care team information PersonnelName: Shaina MCKEON, Piedad Gabriel Address: Address: [facility] Pediatric [address]
--- OUTSIDE RECORDS SUMMARY | 2022-10-30 20:04 | XMS_ITS | Continuity of Care Document ---
:2001 Author Organization [facility] Address [address] [place] [address]- Care Team Providers Name Role Phone Piedad Merritt MD Primary Care Physician [place] [facility] Date(s): 08/16/21 - 08/23/21 [facility] [address] [place] [address]- Encounter Diagnosis Acute sinusitis (Discharge Diagnosis) - 08/16/21 Incidental (Discharge Diagnosis) - 08/16/21 Attending Physician: Piedad Merritt MD Allergies, Adverse Reactions, Alerts Substance Reaction [...] pediatric vaccine 01 Given 1Result Comment: [08/21/2017] [id number] Medications ondansetron 4 mg oral tablet 1 tablet = 4 mg, By Mouth, Every 8 hours, PRN as needed for nausea/vomiting, # 9 tablet, 0 Refills, Maintenance, 01/08/21 18:11:00 EDT, Tablet, [facility] #[id number], Partial fill upon patient request if the [...] moderate(Confirmed) Diagnosis Diagnosis Type Effective Dates Health Clinical Infor mant Status Service Acute sinusitis Discharge 08/16/21 Diagnosis Incidental Discharge 08/16/21 Diagnosis Social History Social History Type Response Smoking Status Never (less than 100 in life time) entered on: 04/10/21 Sex Female
--- OUTSIDE RECORDS SUMMARY | 2022-10-30 20:04 | XMS_ITS | Continuity of Care Document ---
:2001 Author Organization [facility] Address [address] [place] [address]- Care Team Providers Name Role Phone Piedad Merritt MD Primary Care Physician [place] [facility] [place](s): 04/15/22 - 04/22/22 [facility] [address] [place] [address]- Encounter Diagnosis Low back pain (Discharge Diagnosis) - 04/15/22 Attending Physician: Kelby Giordano DO Referring Physician: [...] Not Given Patient Refuses 1Result Comment: [08/21/2017] [id number] Medications Docusate Sodium Capsule 100 mg, 1, [...] 1 Refills, Maintenance, 01/29/22 16:08:00 EDT, Tablet, [facility] #[id number], Partial fill upon patient request ifthe prescription [...] 12/24/22 7:07:00 EDT, 12/23/21 7:06:00 EDT, Tablet, [facility] #[id number], Partial fill upon patient request if the [...] Refills, Soft Stop, 03/28/22 18:33:00 EDT, Tablet, [facility] #[id number], Partial fill upon patient request if the prescription is for a schedule II opioid drug., 157, cm, 03/28/22 17:02:00 EDT,... Start Date: 03/28/22 Status: Ordered Problem List Condition Effective Dates Status Health Status Informant Dysmenorrhea(Confirmed) Active History of chlamydia 04/2019 Active infection(Confirmed) Depression, major, recurrent, Active moderate(Confirmed) Diagnosis Diagnosis Type Effective Dates Health Status Clinical In formant Service Low back pain Discharge 04/15/22 Diagnosis Vital Signs Most recent to oldest [Reference Range]: 1 Height 157 cm (04/15/22 3:01 PM) Oxygen Saturation [94-100 %] 96 % (04/15/22 3:01 PM) Pulse Rate [55-90 bpm] 71 bpm (04/15/22 3:01 PM) Blood Pressure [90-138/55-84 mm Hg] 116/65 mm Hg (04/15/22 3:01 PM) Respiratory Rate [16-30 br/min] 16 br/min (04/15/22 3:01 PM) Temperature [96.8-100.4 DegF] 98.2 DegF (04/15/22 3:01 PM) Mode of Delivery (Oxygen) Room air (04/15/22 3:01 PM) Blood pressure sites Arm, left (04/15/22 3:01 PM) Temperature Route Temporal (04/15/22 3:01 PM) Social History Social History Type Response Smoking Status Never (less than 100 in life time) entered on: 04/10/21 Sex
--- OUTSIDE RECORDS SUMMARY | 2022-10-30 20:04 | XMS_ITS | Continuity of Care Document ---
:2001 Author Organization [facility] Address [address] [place] [address]- Care Team Providers Name Role Phone Piedad Merritt MD Primary Care Physician [facility] Date[facility]s): 08/16/21 - 09/15/21 [facility] [address] [place], [place] [address] Attending Physician: Ezekiel Aguilar Admitting [...] pediatric vaccine 01 Given 1Result Comment: [08/21/2017] [id number] Medications ondansetron 4 mg oral tablet 1 tablet = 4 mg, By Mouth, Every 8 hours, PRN as needed for nausea/vomiting, # 9 tablet, 0 Refills, Maintenance, 01/08/21 18:11:00 EDT, Tablet, [facility] #[id number], Partial fill upon patient request if the [...]
--- OUTSIDE RECORDS SUMMARY | 2022-10-30 20:04 | XMS_ITS | Continuity of Care Document ---
:2001 Author Organization [facility] Address [address] [place] [address]- Care Team Providers Name Role Phone Janet Singletary MD Primary Care Physician [facility] Date[facility]s): 01/21/21 - 01/28/21 [facility] [address] [place], [place] [address] Attending Physician: Janet Singletary MD [...] pediatric vaccine 01 Given 1Result Comment: [08/21/2017] [id number] Medications ondansetron 4 mg oral tablet 1 tablet = 4 mg, By Mouth, Every 8 hours, PRN as needed for nausea/vomiting, # 9 tablet, 0 Refills, Maintenance, 01/08/21 18:11:00 EDT, Tablet, [facility] #[id number], Partial fill upon patient request if the [...]
--- OUTSIDE RECORDS SUMMARY | 2022-10-30 20:04 | XMS_ITS | Continuity of Care Document ---
:2001 Author Organization [facility] Address [address] [place] [address]- Care Team Providers Name Role Phone Piedad Merritt MD Primary Care Physician [facility] Date(s): 06/14/22 - 10/12/22 [facility] [address] [place] [address]- Attending Physician: Piedad Merritt MD Allergies, Adverse [...] Not Given Patient Refuses 1Result Comment: [08/21/2017] [id number] Medications Tylenol Extra Strength 500 mg oral [...] Care Team PersonnelName: Piedad Merritt MD Position: [facility] Primary Care Physician Member Role: PCP Address: Address: [facility] Adult [place] [address]- Care Team Related PersonsName: MALCOLM KRISHNAMURTHY Address: home [address] [place] [address] Name: ANAM QUIROZ Address: home [address] [place] [address] Name: AYAKA QUIROZ Name: JERI ACIN Address: [address] Address: [address] [address]
--- OUTSIDE RECORDS SUMMARY | 2022-10-30 20:04 | XMS_ITS | Continuity of Care Document ---
:2001 Author Organization [facility] Address [address] [place] [address]- Care Team Providers Name Role Phone Hayder MCKEON, Janet Primary Care Physician Encounter [facility] Date(s): 01/08/21 - 01/15/21 [facility] [address] [place] [address]- Attending Physician: aBrtolo Hernandez MD Referring Physician: Janet Singletary MD [...] pediatric vaccine 01 Given 1Result Comment: [08/21/2017] [id number] Medications Cannabis (Schedule I Substance) 0 Refills, Maintenance, 04/17/20 18:42:00 EDT Start Date: 04/17/20 Status: OrderedNuvaRing 0.015 mg-0.120 mg vaginal ring 1 each, Vaginally, Rx by [facility], 0 Refills, Maintenance, 09/18/20 14:19:00 EST, Partial fill upon patient request if the prescription is for a schedule II opioid drug. Start Date: 09/18/20 Status: Orderedomeprazole 20 mg oral delayed release tablet 1 tablet = 20 mg, By Mouth, Daily, # 14 tablet, 0 Refills, Maintenance, 01/08/21 18:11:00 EDT, CR Tablet, [facility] #[id number], Partial fill upon patient request if the prescription is for a schedule II opioid drug., 155, cm, 01/08/21 17:24:00... Start Date: 01/08/21 Stop Date: 01/22/21 Status: Orderedondansetron 4 mg oral tablet 1 tablet = 4 mg, By Mouth, Every 8 hours, PRN as needed for nausea/vomiting, # 9 tablet, 0 Refills, Maintenance, 01/08/21 18:11:00 EDT, [id number], Partial fill upon patient request if the [...] oldest [Reference Range]: 1 Height 155 cm (01/08/21 5:24 PM) Oxygen Saturation [94-100 %] 100 % (01/08/21 5:24 PM) Pulse Rate [55-90 bpm] 82 bpm (01/08/21 5:24 PM) Blood Pressure [90-138/55-84 mm Hg] 108/61 mm Hg (01/08/21 5:24 PM) Respiratory Rate [16-30 br/min] 20 br/min (01/08/21 5:24 PM) Temperature [96.8-100.4 DegF] 98.0 DegF (01/08/21 5:24 PM) Mode of Delivery (Oxygen) Room air (01/08/21 5:24 PM) Blood pressure sites Arm, left (01/08/21 5:24 PM) Social History Social History Type Response Smoking Status Never (less than 100 in life time); Tobacco user in household: Yes; Other: Mom smokes outside.; entered on: 09/18/20 Sex
--- OUTSIDE RECORDS SUMMARY | 2022-10-30 20:04 | XMS_ITS | Continuity of Care Document ---
:2000 Author Organization [facility] Address [address] [place] [address]- Care Team Providers Name Role Phone Janet Singletary MD Primary Care Physician [facility] Date(s): 06/19/20 - 06/26/20 [facility] [address] [place] [address]- [facility] Attending Physician: Janet Singletary [...] pediatric vaccine 01 Given 1Result Comment: [08/21/2017] [id number] Medications Cannabis (Schedule I Substance) 0 Refills, Maintenance, 04/17/20 18:42:00 EDT Start Date: 04/17/20 Status: OrderedDiflucan 150 mg oral tablet 1 tablet = 150 mg, By Mouth, Once, May repeat in 3 days if continued symptoms, # 2 tablet, 0 Refills, Soft Stop, 06/09/20 16:44:00 EDT, Tablet, [facility] #[id number], 155, cm, 05/29/20 16:09:00 EDT, Height, 47.2, [...]
--- OUTSIDE RECORDS SUMMARY | 2022-10-30 20:04 | XMS_ITS | Continuity of Care Document ---
:2001 Author Organization [facility] Address [address] [place] [address]- Care Team Providers Name Role Phone Shaina MCKEON, Piedad Gabriel Primary Care Physician [facility]counter [facility] Date(s): 05/01/22 - 05/31/22 [facility] [address] [place] [address]- Attending Physician: Ezekiel Aguilar Admitting Physician: Ezekiel Aguilar Referring Physician: Ezekiel Aguilar Allergies, Adverse Reactions, Alerts No Known Allergies [...] Not Given Patient Refuses 1Result Comment: [08/21/2017] [id number] Medications Docusate Sodium Capsule 100 mg, 1, [...] 2 Refills, Maintenance, 05/16/22 17:10:00 EDT, Tablet, [facility] #[id number], Partial fill upon patient request if [...] 12/24/22 7:07:00 EDT, 12/23/21 7:06:00 EDT, Tablet, [facility] #[id number], Partial fill upon patient request if the [...] Refills, Soft Stop, 03/28/22 18:33:00 EDT, Tablet, [facility] #[id number], Partial fill upon patient request if the [...]
--- OUTSIDE RECORDS SUMMARY | 2022-10-30 20:04 | XMS_ITS | Continuity of Care Document ---
:2000 Author Organization [facility] Address [address] [place] [address]- Care Team Providers Name Role Phone Janet Singletary MD Primary Care Physician [facility] Date[facility]s): 01/12/20 - 01/22/20 [facility] [address] [place] [address]- [facility] Attending Physician: Ezekiel Aguilar Admitting Physician: Ezekiel Aguilar Referring Physician: Ezekiel Aguilar Allergies, Adverse Reactions, Alerts Substance Reaction Severity [...] pediatric vaccine 01 Given 1Result Comment: [08/21/2017] [id number] Medications Diflucan 150 mg oral tablet 1 tablet = 150 mg, By Mouth, Once, # 1 tablet, 0 Refills, Soft Stop, 01/12/20 14:26:00 EDT, Tablet, [facility] #[id number], 161, cm, 12/15/19 13:09:00 EST, Height, 51.3, kg, 11/29/19 17:04:00 EST,Dry Weight Start Date: 01/12/20 Status: OrderedFlonase 50 mcg/inh nasal spray 1 sprays, Nares, Both, 2 times a day, # 16 Gm, 0 Refills, Maintenance, 12/15/19 13:34:00 EST, [place],[facility] #[id number], 1 sprays Nares, Both 2 times a [...] 12/30/19 14:03:00 EDT, Route to Pharmacy Electronically, [facility] #[id number], 161, cm, 12/15/19 13:09:00 EST, Height, 51.3, [...] 0 Refills, Maintenance, 01/10/20 14:46:00 EDT, Tablet, [facility] #[id number], 161, cm, 12/15/19 13:09:00 EST, Height, 51.3, [...]
--- OUTSIDE RECORDS SUMMARY | 2022-10-30 20:04 | XMS_ITS | Continuity of Care Document ---
:2000 Author Organization [facility] Address [address] [place] [address]- Care Team Providers Name Role Phone Piedad Merritt MD Primary Care Physician [facility]counter [facility] Date[facility]s): 09/19/21 - 01/17/22 [facility] [address] [place], [place] [email or web address] Attending Physician: Piedad Merritt MD Allergies, Adverse [...] Not Given Patient Refuses 1Result Comment: [08/21/2017] [id number] Medications Docusate Sodium Capsule 100 mg, 1, capsule, By Mouth, 2 times a day, PRN, Refills 0, Maintenance, Constipation, 09/21/21 12:15:00 EST, Partial fill upon patient request if the prescription is for a schedule II opioid drug. Start Date: 09/21/21 Status: Orderedescitalopram 10 mg oral tablet 1 tablet = 10 mg, By Mouth, Daily, [facility] this month, # 30 tablet, 0 Refills, Maintenance, 12/30/21 12:30:00 EDT, Tablet, [facility] #[id number], Partial fill upon patient request if the [...] 12/24/22 7:07:00 EDT, 12/23/21 7:06:00 EDT, Tablet, [facility] #[id number], Partial fill upon patient request if the [...]
--- OUTSIDE RECORDS SUMMARY | 2022-10-30 20:04 | XMS_ITS | Continuity of Care Document ---
:[address] [facility] Address [address] [place] [address]- Care Team Providers Name Role Phone Hayder MCKEON, Janet Primary Care Physician [facility]counter [facility] Date(s): 06/27/20 - 07/27/20 [facility] [address] [place] [address]- [facility] Allergies, Adverse Reactions, Alerts Substance Reaction Severity [...] pediatric vaccine 01 Given 1Result Comment: [08/21/2017] [id number] Medications Cannabis (Schedule I Substance) 0 Refills, Maintenance, 04/17/20 18:42:00 EDT Start Date: 04/17/20 Status: OrderedDiflucan 150 mg oral tablet 1 tablet = 150 mg, By Mouth, Once, May repeat in 3 days if continued symptoms, # 2 tablet, 0 Refills, Soft Stop, 06/09/20 16:44:00 EDT, Tablet, [facility] #[id number], 155, cm, 05/29/20 16:09:00 EDT, Height, 47.2, [...]
[2022-10-30 20:16] LABS: MANUAL DIFF FLAG NO
[2022-10-30 20:18] LABS: Basophils Percent Auto 0.2 % (0-2); Eosinophils Percent Auto 0.6 % (0-4); Hematocrit 36.8 % (37.0-47.0); Hemoglobin 12.4 g/dl (12.0-16.0); Imm Gran Abs Auto 0.01 X10*3/uL (0.00-0.03); Imm Gran Pct Auto 0.2 % (0.0-0.4); Lymphocytes Absolute Auto 1.9 X10*3/uL (1.2-4.9); Mean Corpuscular HGB Conc 33.7 g/dl (31.0-35.0); Mean Corpuscular Hemoglobin 28.6 pg (27.0-33.0); Mean Corpuscular Volume 84.8 fL (80.0-98.0); Mean Platelet Volume 12.4 fL (9.4-12.3); Monocytes Absolute Auto 0.9 X10*3/uL (0.1-1.2); Monocytes Percent Auto 17.2 % (2-11); Neutrophils Absolute Auto 2.2 x10*3/uL (2.0-8.3); Neutrophils Percent Auto 43.8 % (45-73); Platelet Count 199 X10*3/uL (160-400); Red Blood Count 4.34 X10*6/uL (4.20-5.50)
[2022-10-30 20:23] LABS: Appearance Urine Cloudy; Color Urine Dark Yellow; Glucose Urine UA Negative (Negative); Leukocyte Esterase Urine Negative (Negative); Nitrite Urine Negative (Negative); Specific Gravity - Urine >= 1.030 (1.005-1.025); UMIC TRIGGER UACC YES; Urine Blood Negative (Negative); Urine Ketones Trace mg/dL (Negative); Urine Protein 30 (1+) mg/dL (Neg-Trace)
[2022-10-30 20:47] LABS: Bacteria Urine 2+ (None Seen); Squamous Epithelial Cell Urine >20 /HPF (0-2); WBC Urine 0-5 /HPF (0-5)
[2022-10-30 20:48] LABS: Calcium Oxalate Crystals Urine Present
[2022-10-30 21:01] LABS: Alanine Aminotransferase 9 U/L (0-31); Albumin Level 4.3 g/dL (3.5-5.0); Alkaline Phosphatase 60 U/L (39-117); Anion Gap 11 (12-20); Aspartate Amino Transferase 20 U/L (5-31); Bilirubin Total 0.4 mg/dL (0.0-1.0); Blood Urea Nitrogen 9 mg/dL (9-16); Calcium 9.3 mg/dL (8.4-10.2); Carbon Dioxide 25 mmol/L (22-29); Chloride 107 mmol/L (96-108); Creatinine Clr Calc Pharmacy 92.3; Estimated Glomerular Filt Rate > 60; Glucose Random 92 mg/dL (60-115); Potassium 3.7 mmol/L (3.3-5.1); Sodium 139 mmol/L (135-145); Total Protein 6.7 g/dL (6.5-8.0)
[2022-10-30 21:09] VITALS: BP 106/70; PULSE 77; TEMP 36.7; O2SAT 99
--- NOTE | 2022-10-30 21:14 | ED_ITS ---
HPI - General Adult General Chief complaint: Abdominal Pain Stated complaint: Right side pain Time Seen by Provider: 10/30/22 21:01 Source: patient Limitations: no limitations History of Present Illness HPI narrative: this is a 22-year-old female with a history of major depression, 1, para 1, who complains of pain in her right flank for about 3 days. The patient was seen here 2 days ago for this problem and had labs, urinalysis, CT scan done which showed no concerning findings. Patient reports that since then she has had continued urinary urgency. She has also had vomiting and diarrhea. Pain is primarily in her right flank but sometimes she feels it in her lower abdomen. She denies any fever. She denies any chest pain, cough, shortness of breath. She states her menstrual periods have been regular for the last few months. Related Data Previous Rx's Medication Instructions Recorded escitalopram oxalate 10 mg tablet 10 mg PO DAILY 30 days #30 tabs 05/06/22 ibuprofen 600 mg tablet 600 mg PO Q6H PRN pain #30 tabs 10/30/22 prochlorperazine maleate 10 mg 10 mg PO Q8H PRN nausea and 10/30/22 tablet (Compazine) vomiting #10 tabs Allergies Allergy/AdvReac Type Severity Reaction Status Date / Time No Known Allergies Allergy Verified 01/08/21 01:58 [No Known Allergies*] Review of Systems Review of Systems: As per HPI ON LICENSE OF [facility] Past Medical History Medical History Anxiety Depression Deviated nasal septum Hx: UTI (urinary tract infection) Kidney pain No known health problems Surgical History Hx of tonsillectomy Family History Family History Mother Anxiety and depression Father Brain tumor Seizures Sister No problems noted. Brother No problems noted. Brother No problems noted. Brother No problems noted. Social History Social History Household Members: Family and Children Housing: Apartment Do you presently have visiting nurse or other home services: No Alcohol intake: never Patient Tobacco Use Status: Never used Tobacco Smoked in Last 30 Days: No Use of substances other than those prescribed or required for medical reasons: No Substance Use Type: Marijuana Advance Directives: No Advance Directives Information Provided: No Patient : No service: No Sexual orientation: Straight/Heterosexual Physical Exam ED Vital Signs: Vital Signs - 24 hr 10/30/22 19:44 10/30/22 21:09 10/30/22 22:38 Temperature 97.3 F 98.0 F 98.1 F Pulse Rate 65 77 78 Respiratory Rate 16 18 Blood Pressure 114/76 106/70 99/65 Pulse Oximetry 98 99 99 Oxygen Delivery Method Room Air Room Air Room Air BMI result Body Mass Index 18.3 Const Other: patient mildly anxious appearing, moves easily on the gurney, no evidence of peritoneal irritation General: no acute distress Orientation/consciousness: patient oriented x3 HENMT Head: Yes normal to inspection General nose exam: Normal external nose present Mouth: moist mucous membranes Throat: Yes posterior oropharynx normal, Yes tonsils normal and Yes uvula midline Eyes Eyelids: Yes eyelids normal Conjunctivae: conjunctivae normal Pupils: Equal, round and reactive pupils present Neck Neck: Yes supple Resp Effort & Inspection: normal respiratory effort Auscultation: clear to auscultation bilaterally Cardio Rate: regular rate Rhythm: regular rhythm Heart sounds: S1 normal heart sound present, S2 normal heart sound present, no gallops, no murmurs and no rubs GI Inspection: No distended Palpation (GI): Soft to palpation and Tenderness to palpation present (GI) ( very mild tenderness bilateral lower quadrant) with no rebound tenderness and Rovsing's sign negative Auscultation: normal bowel sounds Skin General skin exam: other (Warm and dry) Neuro General: patient oriented x3 and CN's II-XI intact bilaterally Cranial nerves: Yes Equal, round and reactive pupils present Extrem General: Yes no pedal edema Psych Affect: normal affect Attitude: cooperative Medications Administered Discontinued Medications Generic Name Dose Route Start Last Admin Trade Name Freq PRN Reason Stop Dose Admin Sodium Chloride 1,000 mls @ 999 mls/hr 10/30/22 21:15 10/30/22 21:25 Ns IV 10/30/22 22:15 999 mls/hr .Q1H1M FESTUS Administration Ketorolac Tromethamine 15 mg 10/30/22 21:13 10/30/22 21:25 Ketorolac Tromethamine 15 Mg/Ml Vial IVPUSH 10/30/22 21:14 15 mg ONCE ONE Administration Lorazepam 1 mg 10/30/22 21:10 10/30/22 21:25 Lorazepam 2 Mg/Ml Vial IVPUSH 10/30/22 21:11 1 mg ONCE ONE Administration Ondansetron HCl 4 mg 10/30/22 21:10 10/30/22 21:26 Ondansetron Hcl 4 Mg/2 Ml Vial IVPUSH 10/30/22 21:11 4 mg ONCE ONE Administration Medical Decision Making Medical Decision Making [facility] Narrative: Patient with persistent her right flank pain. Patient has no significant abdominal tenderness. White blood cell count and other labs normal. Urinalysis shows a few RBCs and some calcium oxalate crystals. CT scan a few days ago head showed no kidney stones. Possible the patient has gravel were other tiny stones that are causing pain but not apparent on CT scan. Patient also seems to have an anxiety component. Patient was treated with lorazepam 1 mg IV, Zofran 4 mg IV, Toradol 15 mg IV, and normal saline 1 L IV. She was able to fall sleep. No clinical suspicion for appendicitis, PID, pyelonephritis Differential Diagnosis Differential Diagnoses: The differential diagnosis associated with the presentation includes pyelonephritis, renal colic, UTI, PID, ovarian cyst, perforated viscus, mesenteric adenitis Lab Data [facility] Lab Attestation statement: I reviewed the patient's lab results. 10/30/22 20:11 10/30/22 20:11 Labs: Lab Results 10/30/22 10/30/22 10/30/22 Range/Units 20:11 20:11 20:11 WBC 5.0 (4.8-10.8) X10*3/uL RBC 4.34 (4.20-5.50) X10*6/uL Hgb 12.4 (12.0-16.0) g/dl Hct 36.8 L (37.0-47.0) % MCV 84.8 (80.0-98.0) fL MCH 28.6 (27.0-33.0) pg MCHC 33.7 (31.0-35.0) g/dl RDW 13.0 (11.0-16.0) % Plt Count 199 (160-400) X10*3/uL MPV 12.4 H (9.4-12.3) fL Immature Gran % (Auto) 0.2 (0.0-0.4) % Neut % (Auto) 43.8 L (45-73) % Lymph % (Auto) 38.0 (20-40) % [place] % (Auto) 17.2 H (2-11) % Eos % (Auto) 0.6 (0-4) % Baso % (Auto) 0.2 (0-2) % Lymph # (Auto) 1.9 (1.2-4.9) X10*3/uL [place] # (Auto) 0.9 (0.1-1.2) X10*3/uL Eos # (Auto) 0.0 (0.0-0.4) X10*3/uL Baso # (Auto) 0.0 (0.0-0.2) X10*3/uL Abs Immat Gran (auto) 0.01 (0.00-0.03) X10*3/uL Absolute Neuts (auto) 2.2 (2.0-8.3) x10*3/uL Absolute Nucleated RBC 0.000 (0.0-0.012) X10*3/uL Nucleated RBC % (auto) 0.0 (0.0-0.2) /100WBC Sodium 139 (135-145) mmol/L Potassium 3.7 (3.3-5.1) mmol/L Chloride 107 (96-108) mmol/L Carbon Dioxide 25 (22-29) mmol/L Anion Gap 11 L (12-20) BUN 9 (9-16) mg/dL Creatinine 0.69 (0.5-1.4) mg/dL Estim Creat Clear Calc 92.3 Estimated GFR > 60 Random Glucose 92 (60-115) mg/dL Calcium 9.3 (8.4-10.2) mg/dL Total Bilirubin 0.4 (0.0-1.0) mg/dL AST 20 (5-31) U/L ALT 9 (0-31) U/L Alkaline Phosphatase 60 (39-117) U/L Total Protein 6.7 (6.5-8.0) g/dL Albumin 4.3 (3.5-5.0) g/dL Urine Color Dark Yellow Urine Appearance Cloudy Urine pH 6.0 (5.0-9.0) Ur Specific [place] >= 1.030 H (1.005-1.025) Urine Protein 30 (1+) H (Neg-Trace) mg/dL Urine Glucose (UA) Negative (Negative) mg/dL Urine Ketones Trace (Negative) mg/dL Urine Blood Negative (Negative) Urine Nitrite Negative (Negative) Ur Leukocyte Esterase Negative (Negative) Urine RBC 3-5 H (0-2) /HPF Urine WBC 0-5 (0-5) /HPF Ur Squamous Epith Cells >20 (0-2) /HPF Calcium Oxalate Crystal Present Urine Bacteria 2+ (None Seen) Hyaline Casts 3-5 (0-2) /LPF Tests considered The following testing was considered but not selected: repeat CT scan, ultrasound Chronic Conditions Patient?s care impacted by: Other ( depression) Social Determinants Patient?s care significantly limited by Social Determinants of Health including: Other Social Determinant of Health ( mother of an infant) Discharge Plan Discharge Clinical Impression: Flank pain Patient Disposition: Home, Self-Care Instructions: Flank Pain (ED) Additional Instructions: Drink plenty of fluids. Use ibuprofen for pain and Compazine for nausea as prescribed. Your urine shows that you do have calcium oxalate crystals in your urine, which could suggest that you may have had kidney stones in the past, or have very tiny stones that are causing pain but not showing up on CT scan. Follow-up with your primary care physician. return for any new or worsened symptoms Prescriptions: New ibuprofen 600 mg tablet 600 mg PO Q6H PRN (Reason: pain) Qty: 30 0RF prochlorperazine maleate [Compazine] 10 mg tablet 10 mg PO Q8H PRN (Reason: nausea and vomiting) Qty: 10 0RF No Action escitalopram oxalate 10 mg tablet 10 mg PO DAILY 30 Days Qty: 30 0RF Interventions: ED Discharge Assessment Last Done: 10/31/22 00:25 Discharge Date/Time: 10/31/22 00:29
[2022-10-30] MEDS: 0.9 % Sodium Chloride 1,000 ML 999 ML IV (21:25)
[2022-10-30] MEDS: LORazepam 2 MG/ML VIAL 1 MG IVPUSH (21:25)
[2022-10-30] MEDS: Ketorolac Tromethamine 15 MG/ML VIAL IVPUSH (21:25)
[2022-10-30] MEDS: ondansetron HCL 4 MG/2 ML VIAL IVPUSH (21:26)
[2022-10-30 22:38] VITALS: BP 99/65; PULSE 78; RESP 18; TEMP 36.7; O2SAT 99
== END 2022-10-31 00:29 | disposition home or self-care (01) ==
PROVIDERS: Emergency Provider Emergency Medicine; PCP Internal Medicine
DX: R10.30 Lower abdominal pain, unspecified (principal); Z79.899 Other long term (current) drug therapy
CPT/HCPCS: 36415; 80053; 81001; 85025; 96361; 96374; 96375; 99284; 99285; J1885; J2060; J2405